=== PATIENT | male | born 1950 | race Caucasian/White ===

== ENCOUNTER 2022-05-08 16:20 | Emergency (ER) | payer OTHER, SELFPAY ==
[2022-05-08 16:20] VITALS: BP 216/104; PULSE 81; RESP 18; TEMP 37.2; O2SAT 97; BMI 28.4
[2022-05-08 16:59] VITALS: BP 192/100; PULSE 73; RESP 20; O2SAT 94
--- NOTE | 2022-05-08 16:59 | ED.RN ---
REILLY CATHETER PLACED BY Radha TAVAREZ RN.
[2022-05-08] MEDS: Lidocaine Jelly 2% 20 ML Syringe (URO-JET) 1 APPLIC TOPICAL (17:00)
[2022-05-08 17:06] LABS: Mucous, Urine 0 SEEN /hpf (<or=2+); Squamous Epithelial Cells - UA 0 SEEN /hpf (0-5)
[2022-05-08 17:13] LABS: Color, Urine Amber (Yellow); Glucose, Dipstick Normal (Normal); Ketone-Dipstick 15 mg/dl (Negative); Leukocyte Esterase-Dipstick 100 /ul (Negative); Nitrite-Dipstick Negative (Negative); Occult Blood-Urine 250 /ul (Negative); Protein-Dipstick 100 mg/dl (Negative); Specific Gravity, Urine 1.015 (1.002-1.030); Urine Bilirubin Dipstick Negative (Negative); Urine Clarity Sl. Cloudy (Clear); Urine Urobilinogen Normal (Normal)
[2022-05-08 17:22] VITALS: BP 183/95; PULSE 72; RESP 16; O2SAT 95
[2022-05-08 17:34] LABS: Red Blood Cells-Urine > 100 SEEN /hpf (0-5)
[2022-05-08 17:35] LABS: Bacteria RARE /hpf (None Seen); White Blood Cells 0-5 SEEN /hpf (0-5)
--- NOTE | 2022-05-08 17:55 | EDS_ITS ---
HPI History of Present Illness Chief Complaint: Complaint Narrative Narrative: 71-year-old male with urinary retention. He states that he was having some trouble urinating yesterday but was able to void. He states that he did have to use the restroom multiple times and could not find a good stream. Today the patient started off being able to urinate and has not been able to urinate for couple of hours he was seen today at his primary care's office he tried to put in a catheter but could not. He does have any flank pain. He denies dysuria. [facility], [facility] Medical History Aneurysm Stroke Home Medications aspirin 81 mg tablet 81 mg PO DAILY 05/08/22 [History Last Taken Unknown] Allergy/AdvReac Type Severity Reaction Status Date / Time No Known Allergies Allergy Verified 05/08/22 16:22 Social History Smoking Status: Never smoker ROS ROS ED Constitutional Constitutional ED: Denies chills or fever(s) Eyes Eyes: Denies change in vision ENT ENT ED: Denies rhinorrhea or sore throat Cardiovascular Cardiovascular: Denies chest pain or palpitations Respiratory/Chest Respiratory/Chest: Denies cough or dyspnea Gastrointestinal Gastrointestinal: Denies abdominal pain, nausea or vomiting Genitourinary Genitourinary ED: Denies dysuria or hematuria Musculoskeletal Musculoskeletal: Denies arthralgias Integumentary Denies abscess Neurologic Neurologic: Denies headache(s) or paresthesias EXAM Physical Exam Const Vital Signs: 05/08/22 16:20 05/08/22 16:59 05/08/22 17:22 Temperature 99 F Temperature Source Temporal Pulse Rate 81 73 72 Respiratory Rate 18 20 H 16 Blood Pressure 216/104 H 192/100 H 183/95 H Blood Pressure Mean 141 130 124 Pulse Ox 97 94 95 Oxygen Delivery Method Room Air Room Air Room Air Positive well nourished General Appearance ED: NAD HEENT Reports moist mucous membranes normocephalic and atraumatic Eyes PERRL and EOMs intact bilaterally Resp normal respiratory effort Cardio regular rate GI non-tender and non-distended Back/Spine no CVA tenderness Neuro oriented x3 and CN's II-XII intact bilaterally Sensorium / Orientation: alert Motor Exam: strength 5/5 throughout Psych mental status grossly normal MDM MDM MDM Narrative Medical decision making narrative: Patient presented with urinary tension. He initially was hypertensive I suspect this is due to urinary retention. Hill catheter was placed without difficulty. There was some blood in his urine and some clots. Urinalysis negative for UTI however. Patient states he is on currently 2 prostate medicines at home. He states his primary care physician wanted him to follow-up with a urologist so I will give him Dr. Galvin. I do not believe he needs blood work. His blood pressure is improving. Impression: 1. Acute urinary retention Lab Data Labs: Laboratory Results - last 24 hr 05/08/22 16:52 Urine Color Mary Urine Clarity Sl. Cloudy Urine pH 6.0 Ur Specific [place] 1.015 Urine Protein 100 H Urine Glucose (UA) Normal Urine Ketones 15 H Urine Occult Blood 250 H Urine Nitrite Negative Urine Bilirubin Negative Urine Urobilinogen Normal Ur Leukocyte Esterase 100 H Urine RBC > 100 SEEN Urine WBC 0-5 SEEN Ur Squamous Epith Cells 0 SEEN Urine Bacteria RARE Urine Mucus 0 SEEN Discharge Plan Triage Chief Complaint: Complaint ED Provider: Carroll Vail Dx/Rx/DC Orders Instructions: ED Urinary Retention, Male Prescriptions: No Action aspirin 81 mg Tablet 81 mg PO DAILY Primary Care Provider: Maco Victor Referrals: Maikol Deal MD [Med Staff - Active Staff] - 5-7 Days Maco Victor MD [Primary Care Provider] - Disposition Disposition: Home, Self Care
[2022-05-08 18:05] VITALS: BP 142/69; PULSE 72; RESP 15; O2SAT 98
== END 2022-05-08 18:05 | disposition home or self-care (01) ==
PROVIDERS: Emergency Provider Student in an Organized Health Care Education/Training Program; PCP Family Medicine; Visit Provider Student in an Organized Health Care Education/Training Program
DX: R33.9 Retention of urine, unspecified (principal); Z79.82 Long term (current) use of aspirin; Z86.73 Personal history of transient ischemic attack (TIA), and cerebral infarction without residual deficits
CPT/HCPCS: 51702; 81001; 87086; 87088; 87186; 99283

== ENCOUNTER → 2024-07-12 | Outpatient (CLI) | payer SELFPAY ==
--- NOTE | 2024-07-12 17:45 | CT_ITS ---
PROCEDURE: SOFT TISSUE NECK WITH CONTRAST 07/12/2024 REASON FOR EXAM: MASS OF LEFT SIDE OF NECK TECHNIQUE: CT of the soft tissues of the neck from the orbits to the upper mediastinum with intravenous contrast. CONTRAST: Isovue-300 50 VOLUME: 100 mL One or more dose reduction techniques were used (e.g., Automated exposure control, adjustment of the mA and/or kV according to patient size, use of iterative reconstruction technique). RADIATION DOSE SUMMARY: CTDlvol: 14.2 mGy DLP: 320 mGycm COMPARISON: None. FINDINGS: Well-defined left supraclavicular benign nonenhancing cyst is noted measuring 9.2 x 6.9 x 9.8 cm in its largest craniocaudal, transverse and anteroposterior dimensions respectively. The cyst is extending to the posterior aspect of the left carotid space, posterior to the left sternocleidomastoid muscle with displacement of the adjacent muscles. Unremarkable right ventriculoperitoneal shunt tube. Hypodensity of the left occipital lobe, probably chronic. Diffuse spondylosis. Moderate carotid artery calcifications. Airway: Unremarkable. Salivary glands: Unremarkable. Lymph nodes: No lymphadenopathy is seen. Thyroid: Unremarkable. Vasculature: No acute abnormality. Orbits: Unremarkable. Paranasal sinuses and mastoids: Unremarkable. Lung apices: Unremarkable. Upper mediastinum: Unremarkable. Bones: No acute abnormality. CT/Soft Tissue Neck WITH Contrast IMPRESSION: Well-defined left supraclavicular benign nonenhancing cyst is noted measuring 9 .2 x 6.9 x 9.8 cm in its largest craniocaudal, transverse and anteroposterior dimensions respectively. The cyst is extending to the posterior aspect of the left carotid space, rn angiography ior to the left sternocleidomastoid muscle with displacement of the adjacent muscles. Unremarkable right ventriculoperitoneal shunt tube. Hypodensity of the left occipital lobe, probably chronic. Diffuse spondylosis. Moderate carotid artery calcifications. Reading Location: [place] [id number]
== END | disposition home or self-care (01) ==
PROVIDERS: PCP Family Medicine; Referring Provider Surgery Plastic and Reconstructive Surgery; Visit Provider Surgery Plastic and Reconstructive Surgery
DX: R22.1 Localized swelling, mass and lump, neck (principal)
CPT/HCPCS: 70491; Q9967

== ENCOUNTER 2024-08-20 13:02 | Observation (INO) | payer SELFPAY, OTHER ==
--- NOTE | 2024-08-07 18:39 | PAT.ANE_ITS ---
Pre-Assessment Diagnosis/Proposed Procedure Planned Operative Procedure(s): L) left neck mass excision Anesthesia History Anesthesia History - plant guard: Anesthesia History - plant guard Hx Hospitalization No 08/07/24 11:25 Any Problems With Anesthesia No 08/07/24 11:25 Cholinesterase deficiency No 08/07/24 11:25 You/Your Family Experience fever (hyperthermia) with Relationship Recent Exposure to Contagious Disease Does patient have nerve No 08/07/24 11:25 stimulator Patient instructed to have device shut off --Does patient have Pacemaker or ICD? When Was Last Pacemaker Check QUESTION #4 FULL TEXT: You/Your Family Experience fever (hyperthermia) with Anesthesia Last Oral Intake Last Oral intake: Last Oral Intake NPO since Meds taken in AM with sips of water? Meds patient instructed to take am of surgery PONV PONV - plant guard: PONV - plant guard Female No 08/07/24 11:25 HX of Motion Sickness No 08/07/24 11:25 HX of N/V After Surgery No 08/07/24 11:25 Non-Smoker Yes 08/07/24 11:25 Duration of Surgery greater Yes 08/07/24 11:25 than 60 minutes Number of Risk Factors 2 08/07/24 11:25 PONV Score Moderate Risk 08/07/24 11:25 Height & Weight Height & Weight: Anesthesia: Height & Weight Height 5 ft 10 in 05/31/24 10:52 Respiratory Assessment Respiratory Assessment - plant guard: Respiratory Tract Infection Hx - plant guard Hx Respiratory Tract Infection No 08/07/24 11:25 STOP Sleep Apnea STOP Sleep Apnea - plant guard: STOP Sleep Apnea - plant guard Hx Hypertension Yes: CONTROLLED ON MED 08/07/24 11:25 Hx Sleep Apnea No 08/07/24 11:25 CPAP BIPAP Do you snore loudly (louder No 08/07/24 11:25 than talking or can be heard Do you often feel tired/ No 08/07/24 11:25 fatigued/ sleepy during daytime? Has anyone observed you stop No 08/07/24 11:25 breathing during sleep? STOP Results Negative 08/07/24 11:25 QUESTION #5 FULL TEXT : Do you snore loudly (louder than talking or can be heard through closed doors)? 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 Specify any problems Hx of Preganancy in last 3 N/A 08/07/24 11:25 Months Nurse Filling Out Transfusion VCHRISTIN 08/07/24 11:25 & Questions: Date: 08/07/24 08/07/24 11:25 Time: 11:26 08/07/24 11:25 Patient unable to answer at this time (ie. confused, unrespo /Reproduction History /Reproductive History - plant guard: /Reproductive Hx- plant guard Hx Now No 08/07/24 11:25 Gestational Age (in weeks): EDC: Hx Hx Para Hx Section SAB No 08/07/24 11:25 [facility], [facility] Medical History (Updated 08/07/24 @ 11:25 by Lauren Obando) Wears dentures Wears glasses Depression Anxiety Autism Injury of head and neck Hypertension Stroke Aneurysm Home Medications ?Medication ?Instructions ?Recorded ?Last Taken ?Type aspirin 81 mg tablet 81 mg PO DAILY 05/08/22 Unkn own History finasteride 5 mg tablet 5 mg PO DAILY 08/07/24 Unkno wn History lisinopril 5 mg tablet 5 mg PO DAILY 08/07/24 Unkno wn History tamsulosin 0.4 mg capsule 0.4 mg PO DAILY 08/07/24 Unk nown History Allergy/AdvReac Type Severity Reaction Status Date / Time No Known Allergies Allergy Verified 08/07/24 11:12 Surgical History (Updated 08/07/24 @ 11:25 by Lauren Obando) History of brain shunt Social History Smoking Status: Never smoker Audit: Pertinent Findings Pertinent Findings EKG Perinent findings: February 06, 2013. Normal sinus rhythm with sinus arrhythmia. Left ventricular hypertrophy. Recommendation Anesthesia Recommendation Anesthesia recommendation: OPTIMIZED for anesthesia (Only EKG is from 2014. Patient has atherosclerotic disease as evidenced by the history of stroke. Please repeat EKG on day of arrival or sooner if possible.)
[2024-08-20] VITALS (17 sets, daily range): BP systolic 150–202; BP diastolic 76–106; PULSE 57–88; RESP 15–20; TEMP 36.1–36.6; O2SAT 91–98; BMI 26.9
[2024-08-20] MEDS: Lactated Ringers 1,000 ML 15 ML IV (10:28)
--- NOTE | 2024-08-20 10:28 | PCM.HP.STD ---
HPI - General HPI Narrative MICHELLE BATES, is a 74 M who presents with a left neck mass. Current Encounter (DATE OF SURGERY H&P UPDATE): I saw and examined the patient this morning in pre-operative holding. We discussed risks and benefits of today's surgery and they would like to proceed. NO CHANGE in health history since last seen and evaluated. Ready to proceed with surgery. Discussed blood pressure with anesthesia and vascular surgery. Since diastolic <110, they're in agreement with proceeding. Patient getting Versed now. He did not take morning blood pressure medicine by accident. [facility] Medical History Wears dentures Wears glasses Depression Anxiety Autism Injury of head and neck Hypertension Stroke Aneurysm Home Medications ?Medication ?Instructions ?Recorded ?Last Taken ?Type aspirin 81 mg tablet 81 mg PO DAILY 05/08/22 08/13/24 History finasteride 5 mg tablet 5 mg PO DAILY 08/07/24 Unknown History tamsulosin 0.4 mg capsule 0.4 mg PO DAILY 08/07/24 Unknown History lisinopril 30 mg tablet 30 mg PO DAILY 08/20/24 Unknown History Allergy/AdvReac Type Severity Reaction Status Date / Time No Known Allergies Allergy Verified 08/07/24 11:12 Surgical History History of brain shunt Social History Smoking Status: Never smoker Vital Signs Vital Signs Vital Signs: 08/20/24 10:02 08/20/24 10:02 Temperature 97.3 F L Temperature Source Temporal Pulse Rate 60 Respiratory Rate 16 Respiratory Pattern Normal Blood Pressure 202/106 H Blood Pressure Mean 138 Blood Pressure Source Manual Blood Pressure Position Semi-Fowlers Blood Pressure Location Left Arm Pulse Ox 97 Oxygen Delivery Method Room Air Weight Weight: 187 lb 6.287 oz Body Mass Index (BMI) 26.9 Physical Exam Narrative Large 15 x 15 cm mobile superficial mass in the left neck/upper chest. No draining sinuses. No palpable lymphadenopathy in the cervical region. Patient able to shrug shoulders and turn head. Assessment & Plan Assessment/Plan (1) Mass of left side of neck: PLAN: I talked to the patient extensively about the risks of surgery, including bleeding, infection, damage to surrounding structures, poor scaring, surgical site dehiscence and wound formation, need for wound care, need for repeat operations, failure to obtain the desired result, DVT/PE, and the risks of anesthesia including , including stroke (from low OR HIGH blood pressure/ischemia or clot). The benefits and alternatives of this surgery were also discussed. All of their questions were answered, and they agreed to proceed with surgery. INTERVAL H&P PLAN, DATE OF SURGERY: We will proceed with surgery today. I marked the mass
--- NOTE | 2024-08-20 10:42 | PCM.PRE.AN2 ---
ASA Classification* ASA Classification ASA Classification: 3 Assessment & Plan Anesthesia* Anesthesia Assessment Anesthesia Assessment: Discussed sedation and/or anesthesia options, risks, benefits, and alternatives with patient/parents/legal guardian/POA. Questions invited. The patient/parents/legal guardian/POA seems to understand and agrees to proceed with anesthesia plan. Reviewed the physical assessment, medical history, allergy history and patient home medications list prior to surgery/procedure/anesthetic and documented any changes. Performed airway and anesthesia risk assessments. Anesthesia Type Anesthesia Type: General (Consider [place] scope intubation.) History Source History Obtained from:: Patient and Chart Anesthesia Focused Assessment* Temperature: 97.3 F Pulse Rate: 57 Blood Pressure: 194/94 Respiratory Rate: 16 Pulse Ox: 97 Oxygen Delivery Method: Room Air Airway Assessment Mouth opens: >3 cm Mallampati Score: IV Teeth Condition: Dentures (Patient has full upper and lower dentures. These will come out.) Neck Range of motion (ROM): Limited ROM (Severe Restriction) Comment: 4. Labs Anesthesia Preop lab: CBC WBC 10.0 K/mm3 (4.4-11.0) 02/06/13 11:40 02/06/13 RBC 4.98 M/mm3 (4.6-6.2) 02/06/13 11:40 02/06/13 Hgb 15.0 g/dl (13.0-16.5) 02/06/13 11:40 02/06/13 Hct 43.8 % (40-54) 02/06/13 11:40 02/06/13 Plt Count 218 K/mm3 (150-450) 02/06/13 11:40 02/06/13 CHEMISTRY Potassium 3.6 mmol/L (3.5-5.1) 02/06/13 11:40 02/06/13 Sodium 136 mmol/L (136-145) 02/06/13 11:40 02/06/13 BUN 12 mg/dL (7-18) 02/06/13 11:40 02/06/13 Creatinine 0.9 mg/dL (0.8-1.3) 02/06/13 11:40 02/06/13 Glucose 188 mg/dL (70-110) H 02/06/13 11:40 02/06/13 POC Glucose 189 mg/dL (70-110) H 02/06/13 11:35 02/06/13 COAG PT 13.0 SECONDS (11.9-14.4) 02/06/13 11:40 02/06/13 Pre-Assessment Diagnosis/Proposed Procedure Planned Operative Procedure(s): L) left neck mass excision Anesthesia History Anesthesia History - greenhouse transplanter: Anesthesia History - greenhouse transplanter Hx Hospitalization No 08/07/24 11:25 Any Problems With Anesthesia No 08/07/24 11:25 Cholinesterase deficiency No 08/07/24 11:25 You/Your Family Experience fever (hyperthermia) with Relationship Recent Exposure to Contagious No 08/20/24 10:02 Disease Does patient have nerve No 08/07/24 11:25 stimulator Patient instructed to have device shut off --Does patient have Pacemaker No 08/20/24 10:02 or ICD? When Was Last Pacemaker Check QUESTION #4 FULL TEXT: You/Your Family Experience fever (hyperthermia) with Anesthesia Last Oral Intake Last Oral intake: Last Oral Intake NPO since 20:00 08/20/24 10:02 Meds taken in AM with sips of No 08/20/24 10:02 water? Meds patient instructed to take am of surgery Any additional information?: Yes Meds taken in AM with sips of water?: No PONV PONV - greenhouse transplanter: PONV - greenhouse transplanter Female No 08/07/24 11:25 HX of Motion Sickness No 08/07/24 11:25 HX of N/V After Surgery No 08/07/24 11:25 Non-Smoker Yes 08/07/24 11:25 Duration of Surgery greater Yes 08/07/24 11:25 than 60 minutes Number of Risk Factors 2 08/07/24 11:25 PONV Score Moderate Risk 08/07/24 11:25 Height & Weight Height & Weight: Anesthesia: Height & Weight Height 5 ft 10 in 08/20/24 10:02 Weight: 85 kg 08/20/24 10:02 Body Mass Index (BMI) 26.9 08/20/24 10:02 Respiratory Assessment Respiratory Assessment - greenhouse transplanter: Respiratory Tract Infection Hx - greenhouse transplanter Hx Respiratory Tract Infection No 08/07/24 11:25 STOP Sleep Apnea STOP Sleep Apnea - greenhouse transplanter: STOP Sleep Apnea - greenhouse transplanter Hx Hypertension Yes: CONTROLLED ON MED 08/07/24 11:25 Hx Sleep Apnea No 08/07/24 11:25 CPAP BIPAP Do you snore loudly (louder No 08/07/24 11:25 than talking or can be heard Do you often feel tired/ No 08/07/24 11:25 fatigued/ sleepy during daytime? Has anyone observed you stop No 08/07/24 11:25 breathing during sleep? STOP Results Negative 08/07/24 11:25 QUESTION #5 FULL TEXT : Do you snore loudly (louder than talking or can be heard through closed doors)? Tobacco Use History Tobacco Use History - greenhouse transplanter: Tobacco Use History - greenhouse transplanter Tobacco Use Smoking Status Never smoker 08/07/24 11:25 Hx Tobacco Use No 08/07/24 11:25 Years Smoking Packs Smoked per Day Smoking Cessation Date was within the last 15 years Hx Smoking Cessation Date Hx Smoking Cessation Counseling Hematologic Medial History Hematologic Hx - greenhouse transplanter: Hematologic Medical Hx - fiberglass roller Hx of Blood Transfusion No 08/07/24 11:25 Hx of Transfusion in last 3 No 08/07/24 11:25 Months Date of Last Transfusion (if within last 3 months) Ever experience any problems No 08/07/24 11:25 with transfusion(s)? Specify any problems Hx of Preganancy in last 3 N/A 08/07/24 11:25 Months Nurse Filling Out Transfusion VCHRISTIN 08/07/24 11:25 & Questions: Date: 08/07/24 08/07/24 11:25 Time: 11:26 08/07/24 11:25 Patient unable to answer at this time (ie. confused, unrespo /Reproduction History /Reproductive History - greenhouse transplanter: /Reproductive Hx- greenhouse transplanter Hx Now No 08/07/24 11:25 Gestational Age (in weeks): EDC: Hx Hx Para Hx Section SAB No 08/07/24 11:25 Active Medications Active Medications: Current Medications Generic Name Dose Route Start Last Admin Trade Name Freq PRN Reason Stop Dose Admin Lactated Ringer's 1,000 mls @ 15 mls/hr 08/20/24 09:15 08/20/24 10:28 IV 15 mls/hr .Q48H EDWINA Administration PFSH Medical History Wears dentures Wears glasses Depression Anxiety Autism Injury of head and neck Hypertension Stroke Aneurysm Home Medications ?Medication ?Instructions ?Recorded ?Last Taken ?Type aspirin 81 mg tablet 81 mg PO DAILY 05/08/22 08/13/24 History finasteride 5 mg tablet 5 mg PO DAILY 08/07/24 Unknown History tamsulosin 0.4 mg capsule 0.4 mg PO DAILY 08/07/24 Unknown History lisinopril 30 mg tablet 30 mg PO DAILY 08/20/24 Unknown History Allergy/AdvReac Type Severity Reaction Status Date / Time No Known Allergies Allergy Verified 08/07/24 11:12 Surgical History History of brain shunt Social History Smoking Status: Never smoker Review of Systems (Anesthesia) ROS Narrative System reviewed and no additional complaints, except as documented.
--- NOTE | 2024-08-20 10:45 | CYST_PTH ---
PATIENT: MICHELLE BATES LOC: MS3 U#:[id number] AGE/SX: 74/M ROOM: [facility] [place] RE08/20/[address]: Dr. Christophe Curtis MD : 1950 BED: 1 DIS: 08/22/2024 SPEC #: [id number] RECD: 08/20/24 12:46 STATUS: KUN JERRY #: [id number] KEELEY: 08/20/24 10:[address]: Christophe Curtis DEPT: SURGICAL PATHOLOGY RECD BY: Asim Jurado ENTERED: 08/20/24 14:54 SP TYPE: Cyst OTHR DR: SUKUMAR BENJAMIN, [facility] Tissues: A - CYST Procedures: Surgery Specimen Level III HEADER OPERATION: Left neck mass excision PRE-OP DIAGNOSIS: Mass of left side of neck TISSUE SUBMITTED: A- Left neck cyst MICROSCOPIC DIAGNOSIS A. 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 GROSS DESCRIPTION A. Received in formalin labeled with the patient's name and date of . Designated as left neck cyst is a bruce-pink trabeculated and focally fibrotic but predominantly thin and translucent cyst wall devoid of orientation or cyst contents, 10.0 x 5.4 x <0.1-0.3 cm. There are patchy areas of attached adipose tissue. There are few possible excrescences, all measuring 0.1 cm or less. Time Buyer sections are submitted in 2 cassettes, to include the possible excrescences in cassette A1. [place] 08/20/2024 CPT:51549
--- NOTE | 2024-08-20 10:45 | FLU_PTH ---
PATIENT: MICHELLE BATES LOC: MS3 U#:[id number] AGE/SX: 74/M ROOM: [facility] RE08/20/[address]: Dr. Christophe Curtis MD : 1950 BED: 1 DIS: 08/22/2024 SPEC #: [id number] RECD: 08/20/24 12:46 STATUS: KUN RECeleste #: [id number] KEELEY: 08/20/24 10:[address]: Christophe Curtis DEPT: CYTOLOGY RECD BY: Theresa Alegria ENTERED: 08/20/24 13:43 SP TYPE: Fluid OTHR DR: SUKUMAR BENJAMIN, KOLE Tissues: A - Neck, NOS Procedures: Special Stain Group II Surgery Specimen Level IV Cytospin Fluid HEADER OPERATION: Left neck mass excision PRE-OP DIAGNOSIS: Mass of left side of neck TISSUE SUBMITTED: A- Left neck cyst fluid for cytology DIAGNOSIS CYTOLOGY A. Left neck cyst fluid: * No malignant cells are identified CYTOLOGY STUDY Slides are reviewed. CYTOLOGY GROSS A. Received is 5 ml of [id number] fluid labeled with the patient's name and and designated per the requisition as Left neck mass fluid. Submitted for cytology and cell block preparation. Mr 08/20/2024 CPT: 75108
--- OUTSIDE RECORDS SUMMARY | 2024-08-20 10:54 | XMS RPT_ITS | CCD ---
Author Organization [facility] Care Team Providers Care Cinder Man Name Role Phone SOURAV LEBLANC, SUKUMAR Primary Care Physician SOURAV LEBLANC, SUKUMAR Attending Marlee LEBLANC, SUKUMAR Primary Care EVA Kamara Attending Unavailable SOURAV LEBLANC, SUKUMAR Attending Marlee LEBLANC, SUKUMAR Primary Care Marlee Victor MD, Dr. Dewey Primary Care Provider Dr. Maco Victor MD Referring Provider Dr. Christophe Curtis MD Attending Provider [phone] Dr. Christophe Curtis MD Referring Provider [phone] Christophe Curtis Attending Unavailable Maco Victor Primary Care Unavailable Maco Victor Referring Unavailable Christophe Curtis Attending Unavailable Christophe Curtis Referring Unavailable Maco Victor Primary Care Unavailable Christophe Curtis Referring Unavailable Maco Victor Primary Care Unavailable Christophe Curtis Admitting Unavailable Christophe Curtis Attending Unavailable Medications Current Medications Medication Drug Class(es) Dates Sig (Normalized) Sig (Original) aspirin 81 mg oral tablet (4 sources) Platelet Aggregation Inhibitor, Nonsteroidal Anti-inflammatory Drug Start: 03-05-2019 take 1 tablet by mouth once daily Aspirin 81 mg Tablet Active 81 mg PO DAILY May 08, 2022 12:00am finasteride 5 mg oral tablet (2 sources) 5-alpha Reductase Inhibitor Start: 12-29-2023 End: 06-26-2024 finasteride 5 mg oral tablet Dose : 5 mg = 1 tab(s), Oral, qDay, # 90 tab(s), 1 Refill(s), Pharmacy: [facility], 175, cm, 12/22/23 14:32:00 EST, Height, kg, 12/22/23 14:32:00 EST, Dosing Weight Start Date: 12/29/23 Stop Date: 06/26/24 Status: Ordered Start: 04-21-2023 End: 05-21-2023 finasteride 5 mg oral tablet Dose : 5 mg = 1 tab(s), Oral, qDay, # 30 tab(s), 0 Refill(s), Pharmacy: [facility], 175.5, cm, 04/21/23 10:52:00 EDT, Height, kg, 04/21/23 10:52:00 EDT, Dosing Weight Start Date: 04/21/23 Stop Date: 05/21/23 Status: Ordered lisinopril 20 mg oral tablet (2 sources) Angiotensin Converting Enzyme Inhibitor Start: 12-29-2023 End: 06-26-2024 lisinopril 20 mg oral tablet Dose : 20 mg = 1 tab(s), Oral, Daily, # 90 tab(s), 1 Refill(s), Pharmacy: [facility], Hypertension, 175, cm, 12/22/23 14:32:00 EST, Height, kg, 12/22/23 14:32:00 EST, Dosing Weight Start Date: 12/29/23 Stop Date: 06/26/24 Status: Ordered Start: 04-21-2023 End: 05-21-2023 lisinopril 20 mg oral tablet Dose : 20 mg = 1 tab(s), Oral, Daily, # 30 tab(s), 0 Refill(s), Pharmacy: [facility], Hypertension, 175.5, cm, 04/21/23 10:52:00 EDT, Height, kg, 04/21/23 10:52:00 EDT, Dosing Weight Start Date: 04/21/23 Stop Date: 05/21/23 Status: Ordered tamsulosin hydrochloride 0.4 mg oral capsule (2 sources) alpha-Adrenergic Shruti Start: 12-29-2023 End: 06-26-2024 tamsulosin 0.4 mg oral capsule Dose : 0.4 mg = 1 cap(s), Oral, qDay, # 90 cap(s), 1 Refill(s), Pharmacy: [facility], 175, cm, 12/22/23 14:32:00 EST, Height, kg, 12/22/23 14:32:00 EST, Dosing Weight Start Date: 12/29/23 Stop Date: 06/26/24 Status: Ordered Start: 04-21-2023 End: 05-21-2023 tamsulosin 0.4 mg oral capsu le Dose : 0.4 mg = 1 cap(s), Oral, qDay, # 30 cap(s), 0 Refill(s), Pharmacy: [facility], 175.5, cm, 04/21/23 10:52:00 EDT, Height, kg, 04/21/23 10:52:00 EDT, Dosing Weight Start Date: 04/21/23 Stop Date: 05/21/23 Status: Ordered Problems Problem Classification Problem Date Documented Date Episodic/Chronic Disorders of lipid metabolism (3 sources) Hyperlipidemia; Translations: [Hyperlipidemia, unspecified] Onset: 12-28-2023 05-24-2023 Chronic Essential hypertension (4 sources) Benign essential hypertension; Translations: [Essential (primary) hypertension] Onset: 12-28-2023 03-05-2019 Chronic Hyperplasia of prostate (4 sources) Benign prostatic hyperplasia; Translations: [Benign prostatic hypertrophy with outflow obstruction] 04-21-2023 Chronic Other circulatory disease (1 source) History of cerebrovascular accident with residual deficit 12-22-2023 Episodic Other screening for suspected conditions (not mental disorders or infectious disease) (2 sources) Raised prostate specific antigen 03-05-2019 Episodic Other skin disorders (4 sources) Mass of neck; Translations: [Localized swelling, mass and lump, neck] 06-29-2020 Episodic Other skin disorders (1 source) Localized swelling, mass and lump, neck; Translations: [Localized swelling, mass and lump, neck] Onset: 07-16-2024 Episodic Shock (2 sources) Hemorrhagic shock 03-05-2019 Episodic Unclassified (2 sources) Patient encounter status 04-21-2023 Urinary tract infections (2 sources) Urinary tract infectious disease 05-11-2022 Episodic Results Test Name Value Interpretation Reference Range Facility MR/[place] 08-07-2024 MR/[facility] Medical Records Department [address] [place] [address] PAT - Anesthesia 08/07/24 1833 MR#: [id number] Acct: [id number] Name: MICHELLE RODRGIUEZ Rep #: [id number] : 1950 74 From: Medardo Cortez MD PCP: Dr. Maco Victor MD Status:PRE [facility] [place] Y Race: C Location: [facility] [place] Pre-Assessment Diagnosis/Proposed Procedure Planned Operative Procedure(s): L) left neck mass excision Anesthesia History Anesthesia History - senior national account manager: Anesthesia History - senior national account manager Hx Hospitalization No 08/07/24 11:25 Any Problems With Anesthesia No 08/07/24 11:25 Cholinesterase deficiency No 08/07/24 11:25 You/Your Family Experience fever (hyperthermia) with Relationship Recent Exposure to Contagious Disease Does patient have nerve No 08/07/24 11:25 stimulator Patient instructed to have device shut off --Does patient have Pacemaker or ICD? When Was Last Pacemaker Check QUESTION #4 FULL TEXT: You/Your Family Experience fever (hyperthermia) with Anesthesia Last Oral Intake Last Oral intake: Last Oral Intake NPO since Meds taken in AM with sips of water? Meds patient instructed to take am of surgery PONV PONV - senior national account manager: PONV - senior national account manager Female No 08/07/24 11:25 HX of Motion Sickness No 08/07/24 11:25 HX of N/V After Surgery No 08/07/24 11:25 Non-Smoker Yes 08/07/24 11:25 Duration of Surgery greater Yes 08/07/24 11:25 than 60 minutes Number of Risk Factors 2 08/07/24 11:25 PONV Score Moderate Risk 08/07/24 11:25 Height Weight Height Weight: Anesthesia: Height Weight Height 5 ft 10 in 05/31/24 10:52 Respiratory Assessment Respiratory Assessment - senior national account manager: Respiratory Tract Infection Hx - senior national account manager Hx Respiratory Tract Infection No 08/07/24 11:25 STOP Sleep Apnea STOP Sleep Apnea - senior national account manager: STOP Sleep Apnea - senior national account manager Hx Hypertension Yes: CONTROLLED ON MED 08/07/24 11:25 Hx Sleep Apnea No 08/07/24 11:25 CPAP BIPAP Do you snore loudly (louder No 08/07/24 11:25 than talking or can be heard Do you often feel tired/ No 08/07/24 11:25 fatigued/ sleepy during daytime? Has anyone observed you stop No 08/07/24 11:25 breathing during sleep? STOP Results Negative 08/07/24 11:25 QUESTION #5 FULL TEXT : Do you snore loudly (louder than talking or can be heard through closed doors)? 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 Specify any problems Hx of Preganancy in last 3 N/A 08/07/24 11:25 Months Nurse Filling Out Transfusion VCHRISTIN 08/07/24 11:25 Questions: Date: 08/07/24 08/07/24 11:25 Time: 11:26 08/07/24 11:25 Patient unable to answer at this time (ie. confused, unrespo /Reproduction History /Reproductive History - senior national account manager: /Reproductive Hx- senior national account manager Hx Now No 08/07/24 11:25 Gestational Age (in weeks): EDC: Hx Hx Para Hx Section SAB No 08/07/24 11:25 [facility] Medical History (Updated 08/07/24 @ 11:25 by Lauren Obando) Wears dentures Wears glasses Depression Anxiety Autism Injury of head and neck Hypertension Stroke Aneurysm Home Medications ???Medication ???Instructions ???Recorded ???Last Taken ???Type aspirin 81 mg tablet 81 mg PO DAILY 05/08/22 Unknown Hi story finasteride 5 mg tablet 5 mg PO DAILY 08/07/24 Unknown His tory lisinopril 5 mg tablet 5 mg PO DAILY 08/07/24 Unknown His tory tamsulosin 0.4 mg capsule 0.4 mg PO DAILY 08/07/24 Unknown H istory Allergy/AdvReac Type Severity Reaction Status Date / Time No Known Allergies Allergy Verified 08/07/24 11:12 Surgical History (Updated 08/07/24 @ 11:25 by Lauren Obando) History of brain shunt Social History Smoking Status: Never smoker Audit: Pertinent Findings Pertinent Findings EKG Perinent findings: February 06, 2013. Normal sinus rhythm wit (more content not included)... Normal [facility] Soft Tissue Neck WITH Contra ston 07-12-2024 Soft Tissue Neck WITH Contrast [facility] Imaging Services [address] [place] [address] Soft Tissue Neck WITH Contrast MR#: [id number] Acct: [id number] Name: MICHELLE RODRIGUEZ Rep #: [id number] : 1950 M 74 From: Brennen gregorio MD PCP: Dr. Maco Victor MD Status: REG CLI Study: Soft Tissue Neck WITH Contrast Date of Exam: 0 07/12/24 Exam# [id number] Ordering Dr: Christophe Curtis MD PROCEDURE: SOFT TISSUE NECK WITH CONTRAST 07/12/2024 REASON FOR EXAM: MASS OF LEFT SIDE OF NECK TECHNIQUE: CT of the soft tissues of the neck from the orbits to the upper mediastinum with intravenous contrast. CONTRAST: Isovue-300 50 VOLUME: 100 mL One or more dose reduction techniques were used (e.g., Automated exposure control, adjustment of the mA and/or kV according to patient size, use of iterative reconstruction technique). RADIATION DOSE SUMMARY: CTDlvol: 14.2 mGy DLP: 320 mGycm COMPARISON: None. FINDINGS: Well-defined left supraclavicular benign nonenhancing cyst is noted measuring 9.2 x 6.9 x 9.8 cm in its largest craniocaudal, transverse and anteroposterior dimensions respectively. The cyst is extending to the posterior aspect of the left carotid space, posterior to the left sternocleidomastoid muscle with displacement of the adjacent muscles. Unremarkable right ventriculoperitoneal shunt tube. Hypodensity of the left occipital lobe, probably chronic. Diffuse spondylosis. Moderate carotid artery calcifications. Airway: Unremarkable. Salivary glands: Unremarkable. Lymph nodes: No lymphadenopathy is seen. Thyroid: Unremarkable. Vasculature: No acute abnormality. Orbits: Unremarkable. Paranasal sinuses and mastoids: Unremarkable. Lung apices: Unremarkable. Upper mediastinum: Unremarkable. Bones: No acute abnormality. CT/Soft Tissue Neck WITH Contrast IMPRESSION: Well-defined left supraclavicular benign nonenhancing cyst is noted measuring 9.2 x 6.9 x 9.8 cm in its largest craniocaudal, transverse and anteroposterior dimensions respectively. The cyst is extending to the posterior aspect of the left carotid space, posterior to the left sternocleidomastoid muscle with displacement of the adjacent muscles. Unremarkable right ventriculoperitoneal shunt tube. Hypodensity of the left occipital lobe, probably chronic. Diffuse spondylosis. Moderate carotid artery calcifications. Reading Location: [place] [address] CC: Dr. Christophe Curtis MD; Dr. Maco Victor MD Ladle Puller: Signed Normal [facility] Plastic Surgery Visit Report on 05-31-2024 Plastic Surgery Visit Report [facility] Plastic Reconstructive Surgery [address], [address] [place] [address] OFFICE VISIT Date of Service: 05/31/24 MR#: [id number] Acct: [id number] Name: MICHELLE RODRIGUEZ Rep #: [id number] : 1950 Provider: Dr. Christophe Curtis MD Age/Sex: 73/M Location: [facility] Status: Signed with Addenda ADDENDUM by Dr. Christophe Curtis MD on 07/05/24 at 1203 Assessment and Plan (No Qualifiers) Assessment and Plan (1) Mass of left side of neck: Status: Acute Plan CPT codes for insurance prior authorization are as follows: [id number], [id number], [id number] 07/05/24 1203 Date Christophe Curtis MD cc: * Signed ADDENDUM by Dr. Christophe Curtis MD on 07/05/24 at 1200 Assessment and Plan (No Qualifiers) Assessment and Plan (1) Mass of left side of neck: Status: Acute Plan: Could not do MRI Getting CT with contrast instead 07/05/24 1200 Date Christophe Curtis MD cc: * Signed Intake Vital Signs 3 05/08/22 16:20 05/31/24 10:52 Height 5 ft 10 in 5 ft 10 in Weight: 192 lb BMI 27.5 BP 190/96 H Blood Pressure Location Lt brachial Position Sitting Respiration 18 Pulse 65 Pulse Source Monitor Pulse Oximetry (%) 96 Oxygen Delivery Method room air Intake Visit Reasons: CYST L SIDE NECK Is patient in pain?: No Allergies No Known Allergies Allergy (Verified 05/31/24 10:52) Medications 3 ???Medication ???Instructions ???Recorded ???Confirmed ???Type aspirin 81 mg tablet 81 mg PO DAILY 05/08/22 05/31/24 H istory Have you fallen in the past year?: No PFSH Medical History Stroke Aneurysm Social History Smoking Status: Never smoker HPI CYST L SIDE NECK Details: Michelle Rodriguez is a 73-year-old male who presents with a left neck mass of approximately 2 years duration. Reports that it has been getting larger but sometimes fluctuates in size. It is not causing him any pain but is getting in the way with movements of his neck and with wearing clothing. He reportedly underwent a CT scan about a year ago at an outside hospital (no imaging available to review) which demonstrated that the mass was superficial. He has not had any numbness or tingling or motor problems in the left upper extremity. No unintentional weight loss or constitutional symptoms. He is not a smoker. No personal or family history of bleeding or clotting problems. ROS General General: Yes good health; No fatigue, fever(s) or weight loss HENMT HENMT: No rhinitis, sore throat/mouth sore, nasal congestion, contacts or glaucoma Endo Endocrine: No thyroid disease, polydipsia, heat intolerance, cold intolerance, hepatitis or excessive urine Skin Skin: No Bleeding, bruising, changing moles or suspicious lesion Musc Musculoskeletal: No joint pain, joint stiffness, muscle weakness, back pain, osteoarthritis or Muscle aches/ myalgia Neuro Neurological: No headache(s), No lightheadedness and No numbness Cardio Cardiovascular: No chest pain, pacemaker, fatigue or shortness of breat with exertion Psych Psychiatric: No depression, claustrophobia or anxiety Resp Respiratory: No spitting up, shortness of breath, sleep apnea, asthma, emphysema, TB, Cough or Smoker Gastro Gastrointestinal: No diarrhea, constipation, blood in stool, nausea, vomiting or abdominal bloating Thom Hematologic: No anemia, No bleeding and No abnormal bleeding Genitourinary: No urinary frequency, blood in urine or incontinence Exam Details Large 15 x 15 cm mobile superficial mass in the left neck/upper chest. No draining sinuses. No palpable lymphadenopathy in the cervical region. Patient able to shrug shoulders and turn head. Coding Level of Care Code Off vis,new,level 3 Diagnoses Mass of left side of neck R22.1 Assessment and Plan (No Qualifiers) Assessment and Plan (1) Mass of left side of neck: Status: Acute Plan: I talked to the patient extensively about the risks of surgery, including bleeding, infection, damage to surrounding structures (especially nerves), need for drain placement, poor scaring, surgical site dehiscence and wound formation, contour irregularities with need for revision of the skin, need for wound care, need for repeat operations, failure to obtain the desired result, DVT/PE, and the risks of anesthesia including , including stroke (from low blood pressure/ischemia or clot). The benefits and alternatives of this surgery were also discussed. I talked to him about getting an MRI given that the mass sometimes fluctuates in size and is overall growing and is in the neck area. The (more content not included)... Normal [facility] .GFRon 12-28-2023 GFR Non- 73 ml/min/1.73sqm Normal [facility] Comment on above: Result Comment: GFR Population mean for , Non- Americans Ages 20-29 = 116 mL/min/1.73 sq.m. Ages 30-39 = 107 mL/min/1.73 sq.m. Ages 40-49 = 99 mL/min/1.73 sq.m. Ages 50-59 = 93 mL/min/1.73 sq.m. Ages 60-69 = 85 mL/min/1.73 sq.m. Ages 70+ = 75 mL/min/1.73 sq.m. Chronic Kidney Disease: Less than 60 mL/min/1.73 square meters End Stage Renal Disease: Less than 15 mL/min/1.73 square meters Performed By: #### L IPID, GFR, CMP #### [address] [address] GFR 89 ml/min/1.73sqm Normal [facility] [place] Comment on above: Result Comment: GFR Population mean for , Non- Americans Ages 20-29 = 116 mL/min/1.73 sq.m. Ages 30-39 = 107 mL/min/1.73 sq.m. Ages 40-49 = 99 mL/min/1.73 sq.m. Ages 50-59 = 93 mL/min/1.73 sq.m. Ages 60-69 = 85 mL/min/1.73 sq.m. Ages 70+ = 75 mL/min/1.73 sq.m. Chronic Kidney Disease: Less than 60 mL/min/1.73 square meters End Stage Renal Disease: Less than 15 mL/min/1.73 square meters Performed By: #### L IPID, GFR, CMP #### [address] [address] CMPon 12-28-2023 Albumin Level 3.8 G/dL Normal 3.4-4.8 [facility] [place] Comment on above: Performed By: #### L IPID, GFR, CMP #### [address] [address] Albumin/Globulin [Mass ratio] 1.3 {ratio} Normal 1.1-2.5 [facility] [place] Comment on above: Performed By: #### L IPID, GFR, CMP #### [address] [address] ALP [Catalytic activity/Vol] 67 U/L Normal 40-135 [facility] [place] Comment on above: Performed By: #### L IPID, GFR, CMP #### [address] [address] ALT [Catalytic activity/Vol] 22 U/L Normal 16-63 [facility] [place] Comment on above: Performed By: #### L IPID, GFR, CMP #### [address] [address] AST [Catalytic activity/Vol] 20 U/L Normal 10-40 [facility] [place] Comment on above: Performed By: #### L IPID, GFR, CMP #### [address] [address] Bili Total 1.2 mg/dL High 0.2-1.0 [facility] [place] Comment on above: Result Comment: Use of this assay is not recommended for patients undergoing treatment with eltrombopag due to the potential for falsely elevated results. Performed By: #### L IPID, GFR, CMP #### [address] [address] BUN/Creatinine Ratio 17 ratio Normal 7-27 [facility] Comment on above: Performed By: #### L IPID, GFR, CMP #### [address] [address] Calcium [Mass/Vol] 9.1 mg/dL Normal 8.4-10.2 [facility] Comment on above: Performed By: #### L IPID, GFR, CMP #### [address] [address] Chloride [Moles/Vol] 105 mmol/L Normal 98-107 [facility] Comment on above: Performed By: #### L IPID, GFR, CMP #### [address] [address] CO2 [Moles/Vol] 27 mmol/L Normal 23-31 [facility] [place] Comment on above: Performed By: #### L IPID, GFR, CMP #### [address] [address] Creatinine [Mass/Vol] 1.00 mg/dL Normal 0.70-1.30 [facility] Comment on above: Result Comment: Test ing performed on Siemens Dimension EXL analyzer using a modified kinetic Jada technique. Performed By: #### L IPID, GFR, CMP #### [address] [address] Electrolyte Balance 8.0 mEq/L Normal 4.0-15.0 [facility] Comment on above: Performed By: #### L IPID, GFR, CMP #### [address] [address] Globulin 3.0 G/dL Normal [facility] [place] Comment on above: Performed By: #### L IPID, GFR, CMP #### [address] [address] Glucose [Mass/Vol] 98 mg/dL Normal 83-110 [facility] Comment on above: Performed By: #### L IPID, GFR, CMP #### [address] [address] Potassium [Moles/Vol] 4.2 mmol/L Normal 3.5-5.1 [facility] Comment on above: Performed By: #### L IPID, GFR, CMP #### [address] [address] Sodium [Moles/Vol] 140 mmol/L Normal 136-145 [facility] Comment on above: Performed By: #### L IPID, GFR, CMP #### [address] [address] Total Protein 6.8 G/dL Normal 6.4-8.2 [facility] [place] Comment on above: Performed By: #### L IPID, GFR, CMP #### [address] [address] Urea nitrogen [Mass/Vol] 17 mg/dL Normal 7-18 [facility] Comment on above: Performed By: #### L IPID, GFR, CMP #### [address] [address] LABORATORYOrdered By: SYSTEM SYSTEM on 12-28-2023 Albumin BCP dye [Mass/Vol] 3.8 G/dL Normal 3.4 - 4.8 G/dL AO ADM SS Albumin/Globulin [Mass ratio] 1.3 {ratio} Normal 1.1 - 2.5 ratio AO ADM SS ALP [Catalytic activity/Vol] 67 U/L Normal 40 - 135 U/L AO ADM SS ALT With P-5'-P [Catalytic activity/Vol] 22 U/L Normal 16 - 63 U/L AO ADM SS AST With P-5'-P [Catalytic activity/Vol] 20 U/L Normal 10 - 40 U/L AO ADM SS Bilirubin [Mass/Vol] 1.2 mg/dL High 0.2 - 1 .0 mg/dL AO ADM SS Comment on above: Interpretive Data: U se of this assay is not recommended for patients undergoing treatment with eltrombopag due to the potential for falsely elevated results. Calcium [Mass/Vol] 9.1 mg/dL Normal 8.4 - 10. 2 mg/dL AO ADM SS Chloride [Moles/Vol] 105 mmol/L Normal 98 - 10 7 mmol/L AO ADM SS CO2 [Moles/Vol] 27 mmol/L Normal 23 - 31 mmol/L AO ADM SS Creatinine [Mass/Vol] 1.00 mg/dL Normal 0.70 - 1.30 mg/dL AO ADM SS Comment on above: Interpretive Data: T esting performed on Siemens Dimension EXL analyzer using a modified kinetic Jada technique. Electrolyte Balance 8.0 mEq/L Normal 4.0 - 15 .0 mEq/L AO ADM SS GFR/1.73 sq M.predicted among blacks MDRD (S/P/Bld) [Vol rate/Area] 89 ml/min/1.73sqm Invalid Interpretation Code AO Chemistry S Comment on above: Interpretive Data: GFR Population mean for , Non- Americans Ages 20-29 = 116 mL/min/1.73 sq.m. Ages 30-39 = 107 mL/min/1.73 sq.m. Ages 40-49 = 99 mL/min/1.73 sq.m. Ages 50-59 = 93 mL/min/1.73 sq.m. Ages 60-69 = 85 mL/min/1.73 sq.m. Ages 70+ = 75 mL/min/1.73 sq.m. Chronic Kidney Disease: Less than 60 mL/min/1.73 square meters End Stage Renal Disease: Less than 15 mL/min/1.73 square meters GFR/1.73 sq M.predicted among non-blacks MDRD (S/P/Bld) [Vol rate/Area] 73 ml/min/1.73sqm Invalid Interpretation Code AO Chemistry S Comment on above: Interpretive Data: GFR Population mean for , Non- Americans Ages 20-29 = 116 mL/min/1.73 sq.m. Ages 30-39 = 107 mL/min/1.73 sq.m. Ages 40-49 = 99 mL/min/1.73 sq.m. Ages 50-59 = 93 mL/min/1.73 sq.m. Ages 60-69 = 85 mL/min/1.73 sq.m. Ages 70+ = 75 mL/min/1.73 sq.m. Chronic Kidney Disease: Less than 60 mL/min/1.73 square meters End Stage Renal Disease: Less than 15 mL/min/1.73 square meters Globulin 3.0 G/dL Invalid Interpretation Code AO ADM SS Glucose [Mass/Vol] 98 mg/dL Normal 83 - 110 mg/dL AO ADM SS Potassium [Moles/Vol] 4.2 mmol/L Normal 3.5 - 5.1 mmol/L AO ADM SS Protein [Mass/Vol] 6.8 G/dL Normal 6.4 - 8.2 G/dL AO ADM SS Sodium [Moles/Vol] 140 mmol/L Normal 136 - 145 mmol/L AO ADM SS Urea nitrogen [Mass/Vol] 17 mg/dL Normal 7 - 18 mg/dL AO ADM SS Urea nitrogen/Creatinine [Mass ratio] 17 ratio Normal 7 - 27 ratio AO ADM SS LABORATORYOrdered By: Susan Queen on 12-28-2023 Albumin DL <= 20 mg/L (U) [Mass/Vol] 7032 mcg/dL Invalid Interpretation Code AO ADM SS Albumin/Creatinine DL <= 20 mg/L (U) [Mass ratio] 75 mcg/mg High 0 - 30 mcg/mg AO ADM SS Creatinine (U) [Mass/Vol] 93.6 mg/dL Normal 39.0 - 259.0 mg/dL AO ADM SS LABORATORYOrdered By: Daisy Delarosa on 12-28-2023 Cholesterol [Mass/Vol] 247 mg/dL High 0 - 2 00 mg/dL AO ADM SS Comment on above: Interpretive Data: C holesterol Reference Interval: Less than 200 Desirable 200-239 Borderline high risk 240 and above High risk Cholesterol in HDL [Mass/Vol] 64 mg/dL High 40 - 60 mg/dL AO ADM SS Cholesterol in LDL [Mass/Vol] 161 mg/dL High 0 - 130 mg/dL AO ADM SS Triglyceride [Mass/Vol] 110 mg/dL Normal 0 - 150 mg/dL AO ADM SS Comment on above: Interpretive Data: T riglyceride Reference Interval: Less than 150 Normal 150-199 Borderline high risk 200-499 High risk 500 or higher Very high risk LIPIDon 12-28-2023 Cholesterol [Mass/Vol] 247 mg/dL High 0-200 [facility] Comment on above: Result Comment: Chol esterol Reference Interval: Less than 200 Desirable 200-239 Borderline high risk 240 and above High risk Performed By: #### L IPID, GFR, CMP #### [place] [id number] Cholesterol in HDL [Mass/Vol] 64 mg/dL High 40-60 [facility] [place] Comment on above: Performed By: #### L IPID, GFR, CMP #### [address] [address] Cholesterol in LDL [Mass/Vol] 161 mg/dL High 0-130 [facility] [place] Comment on above: Performed By: #### L IPID, GFR, CMP #### [address] [address] Triglyceride [Mass/Vol] 110 mg/dL Normal 0-150 [facility] Comment on above: Result Comment: Trig lyceride Reference Interval: Less than 150 Normal 150-199 Borderline high risk 200-499 High risk 500 or higher Very high risk Performed By: #### L IPID, GFR, CMP #### [address] [address] MALBRon 12-28-2023 U Creatinine 93.6 mg/dL Normal 39.0-259.0 [facility] [place] Comment on above: Performed By: #### M ALBR #### [place] [id number] U Microalb 7032 mcg/dL Normal [facility] [place] Comment on above: Performed By: #### M ALBR #### [facility] [address], [place] [address] U Ratio Alb/Cre 75 mcg/mg High 0-30 [facility] [place] Comment on above: Performed By: #### M ALBR #### [facility] [address] [place], [place] [address] CT SOFT TISSUE NECK W/ CONTR Bruno 05-17-2023 CT SOFT TISSUE NECK W/ CONTRAST ORIGINAL EXAMINATION: CT OF THE NECK SOFT TISSUE WITH CONTRAST 05/16/2023 TECHNIQUE: CT of the neck was performed with the administration of intravenous contrast. Multiplanar reformatted images are provided for review. Automated exposure control, iterative reconstruction, and/or weight based adjustment of the mA/kV was utilized to reduce the radiation dose to as low as reasonably achievable. COMPARISON: Ultrasound 06/12/2020 HISTORY: ORDERING SYSTEM PROVIDED HISTORY: Reason for Exam: soft tissue mass left neck FINDINGS: Partial visualization of shunt tubing traversing the right lateral ventricle. Extensive hypodensity involving the left temporal and occipital lobes, suboptimally assessed. 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 Right lens replacement. Metallic artifact emanates from the left medial temporal region. The parotid and submandibular glands appear unremarkable. A subcentimeter right thyroid nodule is present requiring no dedicated imaging follow-up. The thyroid gland is not completely included on the examination. The aero digestive structures appear unremarkable. Shunt tubing traverses the right posterior neck. The shunt tubing traverses anteriorly in the right supraclavicular region. No dominant regional adenopathy. Included paranasal sinuses are predominantly clear. Mastoid air cells are clear. Soft tissue density in the bilateral external auditory canals likely reflects cerumen but would be amenable to direct visualization. Multilevel degenerative changes are identified in the spine. Nonspecific sclerotic lesion with surrounding lucency of the right scapula. The mild anterior height loss at T1. Partial osseous fusion at C7-T1. The patient is edentulous. In the left neck extending from the retroclavicular region to the level of C2, there is a well-defined fluid density lesion which measures 7.5 cm AP by 6.8 cm transverse by 8.2 cm cranial caudal. This was also present on the prior ultrasound although is measuring slightly larger. However, the difference could be due to differences in imaging technique. IMPRESSION: Cystic lesion in the left neck measures slightly larger than on the prior ultrasound, however the difference could be due to differences in imaging technique. 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 Interpreted by: Rosanna Morales MD Preliminary Report By: Rosanna Morales MD Electronically signed By Rosanna Morales MD Dictated Date: 05/17/2023 9:39:17 AM Prelim Date: 05/17/2023 9:55:40 AM Sign Date: 05/17/2023 9:55:40 AM Ordering Provider: SUKUMAR BENJAMIN On License Of [facility] ([place]) .GFRon 05-16-2023 GFR 94 ml/min/1.73sqm On License Of [facility] ([place]) Comment on above: Result Comment: GFR Population mean for , Non- Americans Ages 20-29 = 116 mL/min/1.73 sq.m. Ages 30-39 = 107 mL/min/1.73 sq.m. Ages 40-49 = 99 mL/min/1.73 sq.m. Ages 50-59 = 93 mL/min/1.73 sq.m. Ages 60-69 = 85 mL/min/1.73 sq.m. Ages 70+ = 75 mL/min/1.73 sq.m. Chronic Kidney Disease: Less than 60 mL/min/1.73 square meters End Stage Renal Disease: Less than 15 mL/min/1.73 square meters Performed By: #### G FR, PSA, CMP, LIPID #### [address] [address] GFR Non- 78 ml/min/1.73sqm Normal [facility] ([place]) Comment on above: Result Comment: GFR Population mean for , Non- Americans Ages 20-29 = 116 mL/min/1.73 sq.m. Ages 30-39 = 107 mL/min/1.73 sq.m. Ages 40-49 = 99 mL/min/1.73 sq.m. Ages 50-59 = 93 mL/min/1.73 sq.m. Ages 60-69 = 85 mL/min/1.73 sq.m. Ages 70+ = 75 mL/min/1.73 sq.m. Chronic Kidney Disease: Less than 60 mL/min/1.73 square meters End Stage Renal Disease: Less than 15 mL/min/1.73 square meters Performed By: #### G FR, PSA, CMP, LIPID #### [address] [address] CMPon 05-16-2023 Albumin Level 3.8 G/dL Normal 3.4-4.8 [facility] ([place] Comment on above: Performed By: #### G FR, PSA, CMP, LIPID #### [address] [address] Albumin/Globulin [Mass ratio] 1.2 {ratio} Normal 1.1-2.5 [facility] ([place] Comment on above: Performed By: #### G FR, PSA, CMP, LIPID #### [address] [address] ALP [Catalytic activity/Vol] 65 U/L Normal 40-135 [facility] ([place] Comment on above: Performed By: #### G FR, PSA, CMP, LIPID #### [address] [address] ALT [Catalytic activity/Vol] 25 U/L Normal 16-63 [facility] ([place] Comment on above: Performed By: #### G FR, PSA, CMP, LIPID #### [address] [address] AST [Catalytic activity/Vol] 20 U/L Normal 10-40 [facility] ([place] Comment on above: Performed By: #### G FR, PSA, CMP, LIPID #### [address] [address] Bili Total 1.7 mg/dL High 0.2-1.0 [facility] ([place] Comment on above: Result Comment: Use of this assay is not recommended for patients undergoing treatment with eltrombopag due to the potential for falsely elevated results. Performed By: #### G FR, PSA, CMP, LIPID #### [address] [address] BUN/Creatinine Ratio 19 ratio Normal 7-27 [facility] ([place]) Comment on above: Performed By: #### G FR, PSA, CMP, LIPID #### [address] [address] Calcium [Mass/Vol] 8.9 mg/dL Normal 8.4-10.2 On license of [facility] ([place]) Comment on above: Performed By: #### G FR, PSA, CMP, LIPID #### [address] [address] Chloride [Moles/Vol] 105 mmol/L Normal 98-107 [facility] ([place] Comment on above: Performed By: #### G FR, PSA, CMP, LIPID #### [address] [address] CO2 [Moles/Vol] 28 mmol/L Normal 23-31 [facility] ([place] Comment on above: Performed By: #### G FR, PSA, CMP, LIPID #### [address] [address] Electrolyte Balance 8.0 mEq/L Normal 4.0-15.0 [facility] ([place]) Comment on above: Performed By: #### G FR, PSA, CMP, LIPID #### [address] [address] Globulin 3.2 G/dL Normal [facility] ([place] Comment on above: Performed By: #### G FR, PSA, CMP, LIPID #### [address] [address] Glucose [Mass/Vol] 103 mg/dL Normal 83-110 On license of [facility] ([place] Comment on above: Performed By: #### G FR, PSA, CMP, LIPID #### [address] [address] Potassium [Moles/Vol] 4.8 mmol/L Normal 3.5-5.1 [facility] ([place]) Comment on above: Performed By: #### G FR, PSA, CMP, LIPID #### [address] [address] Sodium [Moles/Vol] 141 mmol/L Normal 136-145 On license of [facility] ([place] Comment on above: Performed By: #### G FR, PSA, CMP, LIPID #### [address] [address] Total Protein 7.0 G/dL Normal 6.4-8.2 [facility] ([place] Comment on above: Performed By: #### G FR, PSA, CMP, LIPID #### [address] [address] Urea nitrogen [Mass/Vol] 18 mg/dL Normal 7-18 [facility] ([place] Comment on above: Performed By: #### G FR, PSA, CMP, LIPID #### [address] [address] Creatinine [Mass/Vol] 0.95 mg/dL Normal 0.70-1.30 [facility] ([place]) Comment on above: Performed By: #### G FR, PSA, CMP, LIPID #### [address] [address] LABORATORYOrdered By: SYSTEM SYSTEM on 05-16-2023 Albumin BCP dye [Mass/Vol] 3.8 G/dL Normal 3.4 - 4.8 G/dL AO ADM SS Albumin/Globulin [Mass ratio] 1.2 {ratio} Normal 1.1 - 2.5 ratio AO ADM SS ALP [Catalytic activity/Vol] 65 U/L Normal 40 - 135 U/L AO ADM SS ALT With P-5'-P [Catalytic activity/Vol] 25 U/L Normal 16 - 63 U/L AO ADM SS AST With P-5'-P [Catalytic activity/Vol] 20 U/L Normal 10 - 40 U/L AO ADM SS Bilirubin [Mass/Vol] 1.7 mg/dL High 0.2 - 1 .0 mg/dL AO ADM SS Comment on above: Interpretive Data: U se of this assay is not recommended for patients undergoing treatment with eltrombopag due to the potential for falsely elevated results. Calcium [Mass/Vol] 8.9 mg/dL Normal 8.4 - 10. 2 mg/dL AO ADM SS Chloride [Moles/Vol] 105 mmol/L Normal 98 - 10 7 mmol/L AO ADM SS CO2 [Moles/Vol] 28 mmol/L Normal 23 - 31 mmol/L AO ADM SS Creatinine [Mass/Vol] 0.95 mg/dL Normal 0.70 - 1.30 mg/dL AO ADM SS Electrolyte Balance 8.0 mEq/L Normal 4.0 - 15 .0 mEq/L AO ADM SS GFR/1.73 sq M.predicted among blacks MDRD (S/P/Bld) [Vol rate/Area] 94 ml/min/1.73sqm Invalid Interpretation Code AO Chemistry S Comment on above: Interpretive Data: GFR Population mean for , Non- Americans Ages 20-29 = 116 mL/min/1.73 sq.m. Ages 30-39 = 107 mL/min/1.73 sq.m. Ages 40-49 = 99 mL/min/1.73 sq.m. Ages 50-59 = 93 mL/min/1.73 sq.m. Ages 60-69 = 85 mL/min/1.73 sq.m. Ages 70+ = 75 mL/min/1.73 sq.m. Chronic Kidney Disease: Less than 60 mL/min/1.73 square meters End Stage Renal Disease: Less than 15 mL/min/1.73 square meters GFR/1.73 sq M.predicted among non-blacks MDRD (S/P/Bld) [Vol rate/Area] 78 ml/min/1.73sqm Invalid Interpretation Code AO Chemistry S Comment on above: Interpretive Data: GFR Population mean for , Non- Americans Ages 20-29 = 116 mL/min/1.73 sq.m. Ages 30-39 = 107 mL/min/1.73 sq.m. Ages 40-49 = 99 mL/min/1.73 sq.m. Ages 50-59 = 93 mL/min/1.73 sq.m. Ages 60-69 = 85 mL/min/1.73 sq.m. Ages 70+ = 75 mL/min/1.73 sq.m. Chronic Kidney Disease: Less than 60 mL/min/1.73 square meters End Stage Renal Disease: Less than 15 mL/min/1.73 square meters Globulin 3.2 G/dL Invalid Interpretation Code AO ADM SS Glucose [Mass/Vol] 103 mg/dL Normal 83 - 110 mg/dL AO ADM SS Potassium [Moles/Vol] 4.8 mmol/L Normal 3.5 - 5.1 mmol/L AO ADM SS Prostate specific Ag [Mass/Vol] 3.81 ng/mL Normal 0.00 - 4.00 ng/mL AO ADM SS Protein [Mass/Vol] 7.0 G/dL Normal 6.4 - 8.2 G/dL AO ADM SS Sodium [Moles/Vol] 141 mmol/L Normal 136 - 145 mmol/L AO ADM SS Urea nitrogen [Mass/Vol] 18 mg/dL Normal 7 - 18 mg/dL AO ADM SS Urea nitrogen/Creatinine [Mass ratio] 19 ratio Normal 7 - 27 ratio AO ADM SS LABORATORYOrdered By: Asuncion Lee on 05-16-2023 Cholesterol [Mass/Vol] 233 mg/dL High 0 - 2 00 mg/dL AO ADM SS Comment on above: Interpretive Data: C holesterol Reference Interval: Less than 200 Desirable 200-239 Borderline high risk 240 and above High risk Cholesterol in HDL [Mass/Vol] 59 mg/dL Normal 40 - 60 mg/dL AO ADM SS Cholesterol in LDL [Mass/Vol] 149 mg/dL High 0 - 130 mg/dL AO ADM SS Triglyceride [Mass/Vol] 123 mg/dL Normal 0 - 150 mg/dL AO ADM SS Comment on above: Interpretive Data: T riglyceride Reference Interval: Less than 150 Normal 150-199 Borderline high risk 200-499 High risk 500 or higher Very high risk LIPIDon 05-16-2023 Cholesterol [Mass/Vol] 233 mg/dL High 0-200 [facility] ([place] Comment on above: Result Comment: Chol esterol Reference Interval: Less than 200 Desirable 200-239 Borderline high risk 240 and above High risk Performed By: #### G FR, PSA, CMP, LIPID #### [address] [address] Cholesterol in HDL [Mass/Vol] 59 mg/dL Normal 40-60 [facility] ([place] Comment on above: Performed By: #### G FR, PSA, CMP, LIPID #### [place] [address] [address] Cholesterol in LDL [Mass/Vol] 149 mg/dL High 0-130 [facility] ([place] Comment on above: Performed By: #### G FR, PSA, CMP, LIPID #### [address] [address] Triglyceride [Mass/Vol] 123 mg/dL Normal 0-150 A [facility] ([place]) Comment on above: Result Comment: Trig lyceride Reference Interval: Less than 150 Normal 150-199 Borderline high risk 200-499 High risk 500 or higher Very high risk Performed By: #### G FR, PSA, CMP, LIPID #### [address] [address] PSAon 05-16-2023 Prostate Specific Antigen 3.81 ng/mL Normal 0.00-4.00 [facility] ([place] Comment on above: Performed By: #### G FR, PSA, CMP, LIPID #### [address] [address] .Auto Diffon 07-25-2022 Basophil, Absolute 0.0 10 3/mcL Normal 0.0-0.3 [facility] ([place] Comment on above: Performed By: #### P SA, ANEU, ADIFF, CBC, GFR, CMP #### [address] [address] Basophils/100 WBC (Bld) 0.3 % Normal 0.0-2.5 A [facility] ([place]) Comment on above: Performed By: #### P SA, ANEU, ADIFF, CBC, GFR, CMP #### [address] [address] Eosinophil, Absolute 0.2 10 3/mcL Normal 0.0-0.7 [facility] ([place] Comment on above: Performed By: #### P SA, ANEU, ADIFF, CBC, GFR, CMP #### [address] [address] Eosinophils/100 WBC (Bld) 2.5 % Normal 0.0-6.0 [facility] ([place] Comment on above: Performed By: #### P SA, ANEU, ADIFF, CBC, GFR, CMP #### [address] [address] Lymphocyte, Absolute 2.0 10 3/mcL Normal 0.9-4.3 [facility] ([place] Comment on above: Performed By: #### P SA, ANEU, ADIFF, CBC, GFR, CMP #### [address] [address] Lymphocytes/100 WBC (Bld) 26.2 % Normal 20.0-40.0 [facility] ([place]) Comment on above: Performed By: #### P SA, ANEU, ADIFF, CBC, GFR, CMP #### [address] [address] Monocyte, Absolute 0.5 10 3/mcL Normal 0.1-1.4 [facility] ([place] Comment on above: Performed By: #### P SA, ANEU, ADIFF, CBC, GFR, CMP #### [address] [address] Monocytes/100 WBC (Bld) 6.1 % Normal 2.0-13.0 A [facility] ([place]) Comment on above: Performed By: #### P SA, ANEU, ADIFF, CBC, GFR, CMP #### [address] [address] Neutrophils/100 WBC (Bld) 64.9 % Normal 50.0-75.0 [facility] ([place] Comment on above: Performed By: #### P SA, ANEU, ADIFF, CBC, GFR, CMP #### [address] [address] .GFRon 07-25-2022 GFR Non- >60 Normal [facility] ([place] Comment on above: Result Comment: GFR Population mean for , Non- Americans Ages 20-29 = 116 mL/min/1.73 sq.m. Ages 30-39 = 107 mL/min/1.73 sq.m. Ages 40-49 = 99 mL/min/1.73 sq.m. Ages 50-59 = 93 mL/min/1.73 sq.m. Ages 60-69 = 85 mL/min/1.73 sq.m. Ages 70+ = 75 mL/min/1.73 sq.m. Chronic Kidney Disease: Less than 60 mL/min/1.73 square meters End Stage Renal Disease: Less than 15 mL/min/1.73 square meters Performed By: #### P SA, ANEU, ADIFF, CBC, GFR, CMP #### [address] [address] GFR >60 Normal [facility] ([place] Comment on above: Result Comment: GFR Population mean for , Non- Americans Ages 20-29 = 116 mL/min/1.73 sq.m. Ages 30-39 = 107 mL/min/1.73 sq.m. Ages 40-49 = 99 mL/min/1.73 sq.m. Ages 50-59 = 93 mL/min/1.73 sq.m. Ages 60-69 = 85 mL/min/1.73 sq.m. Ages 70+ = 75 mL/min/1.73 sq.m. Chronic Kidney Disease: Less than 60 mL/min/1.73 square meters End Stage Renal Disease: Less than 15 mL/min/1.73 square meters Performed By: #### P SA, ANEU, ADIFF, CBC, GFR, CMP #### [address] [address] .NEUABSon 07-25-2022 Neutrophil, Absolute 4.9 10 3/mcL Normal 2.3-8.1 [facility] ([place] Comment on above: Performed By: #### P SA, ANEU, ADIFF, CBC, GFR, CMP #### [address] [address] CBCon 07-25-2022 Erythrocyte distribution width (RBC) [Ratio] 14.5 % Normal 11.5-15.5 [facility] ([place] Comment on above: Performed By: #### P SA, ANEU, ADIFF, CBC, GFR, CMP #### [address] [address] Hematocrit (Bld) [Volume fraction] 43.1 % Normal 40.0-52.0 [facility] ([place] Comment on above: Performed By: #### P SA, ANEU, ADIFF, CBC, GFR, CMP #### [place] [address] Hgb 14.3 G/dL Normal 13.0-17.5 [facility] ([place] Comment on above: Performed By: #### P SA, ANEU, ADIFF, CBC, GFR, CMP #### [place] [address] MCH (RBC) [Entitic mass] 30.0 pg Normal 27.0-33.0 [facility] ([place] Comment on above: Performed By: #### P SA, ANEU, ADIFF, CBC, GFR, CMP #### [place] [address] MCHC 33.1 G/dL Normal 32.0-36.0 [facility] ([place] Comment on above: Performed By: #### P SA, ANEU, ADIFF, CBC, GFR, CMP #### [place] [address] MCV (RBC) [Entitic vol] 90.6 fL Normal 81.0-100.0 A [facility] ([place]) Comment on above: Performed By: #### P SA, ANEU, ADIFF, CBC, GFR, CMP #### [place] [address] Platelet 197 10 3/mcL Normal 150-450 [facility] ([place] Comment on above: Performed By: #### P SA, ANEU, ADIFF, CBC, GFR, CMP #### [place] [address] Platelet mean volume (Bld) [Entitic vol] 9.1 fL Normal 6.4-10.5 [facility] ([place] Comment on above: Performed By: #### P SA, ANEU, ADIFF, CBC, GFR, CMP #### [place] [address] RBC 4.76 10 6/mcL Normal 4.50-6.00 [facility] ([place] Comment on above: Performed By: #### P SA, ANEU, ADIFF, CBC, GFR, CMP #### [address] [address] WBC 7.5 10 3/mcL Normal 4.5-10.8 [facility] ([place] Comment on above: Performed By: #### P SA, ANEU, ADIFF, CBC, GFR, CMP #### [address] [address] CMPon 07-25-2022 Albumin Level 4.1 G/dL Normal 3.2-4.8 [facility] ([place] Comment on above: Performed By: #### P SA, ANEU, ADIFF, CBC, GFR, CMP #### [place] [id number] Albumin/Globulin [Mass ratio] 1.4 {ratio} Normal 0.9-1.6 [facility] ([place] Comment on above: Performed By: #### P SA, ANEU, ADIFF, CBC, GFR, CMP #### [place] [address] ALP [Catalytic activity/Vol] 63 U/L Normal 38-126 [facility] ([place] Comment on above: Performed By: #### P SA, ANEU, ADIFF, CBC, GFR, CMP #### [place] [id number] ALT [Catalytic activity/Vol] 14 U/L Normal 12-55 [facility] ([place] Comment on above: Performed By: #### P SA, ANEU, ADIFF, CBC, GFR, CMP #### [place] [id number] AST [Catalytic activity/Vol] 24 U/L Normal 8-34 [facility] ([place] Comment on above: Performed By: #### P SA, ANEU, ADIFF, CBC, GFR, CMP #### [place] [id number] Bili Total 1.10 mg/dL Normal 0.20-1.20 [facility] ([place] Comment on above: Result Comment: Use of this assay is not recommended for patients undergoing treatment with eltrombopag due to the potential for falsely elevated results. Performed By: #### P SA, ANEU, ADIFF, CBC, GFR, CMP #### [place] [address] BUN/Creatinine Ratio 27.1 ratio High 10.0-22.0 [facility] ([place] Comment on above: Performed By: #### P SA, ANEU, ADIFF, CBC, GFR, CMP #### [place] [address] Calcium [Mass/Vol] 9.6 mg/dL Normal 8.7-10.4 On license of [facility] ([place]) Comment on above: Performed By: #### P SA, ANEU, ADIFF, CBC, GFR, CMP #### [place] [id number] Chloride [Moles/Vol] 109 mmol/L Normal 98-110 [facility] ([place] Comment on above: Performed By: #### P SA, ANEU, ADIFF, CBC, GFR, CMP #### [place] [id number] CO2 [Moles/Vol] 24 mmol/L Normal 22-32 [facility] ([place] Comment on above: Performed By: #### P SA, ANEU, ADIFF, CBC, GFR, CMP #### [place] [address] Creatinine [Mass/Vol] 0.70 mg/dL Normal 0.60-1.40 [facility] ([place]) Comment on above: Performed By: #### P SA, ANEU, ADIFF, CBC, GFR, CMP #### [place] [address] Electrolyte Balance 10.0 mEq/L Normal 4.0-15.0 [facility] ([place]) Comment on above: Performed By: #### P SA, ANEU, ADIFF, CBC, GFR, CMP #### [place] [id number] Globulin 2.9 G/dL Normal 1.5-3.8 [facility] ([place] Comment on above: Performed By: #### P SA, ANEU, ADIFF, CBC, GFR, CMP #### [place] [id number] Glucose [Mass/Vol] 100 mg/dL Normal 82-115 On license of [facility] ([place] Comment on above: Performed By: #### P SA, ANEU, ADIFF, CBC, GFR, CMP #### [place] [address] Potassium [Moles/Vol] 4.4 mmol/L Normal 3.5-5.0 [facility] ([place] Comment on above: Performed By: #### P SA, ANEU, ADIFF, CBC, GFR, CMP #### [place] [id number] Sodium [Moles/Vol] 143 mmol/L Normal 136-145 On license of [facility] ([place] Comment on above: Performed By: #### P SA, ANEU, ADIFF, CBC, GFR, CMP #### [place] [address] Total Protein 7.0 G/dL Normal 5.7-8.2 [facility] ([place] Comment on above: Result Comment: No te - New Reference Range in effect 19 Performed By: #### P SA, ANEU, ADIFF, CBC, GFR, CMP #### [place] [address] Urea nitrogen [Mass/Vol] 19.0 mg/dL Normal 8.0-22.0 [facility] ([place] Comment on above: Performed By: #### P SA, ANEU, ADIFF, CBC, GFR, CMP #### [place] [address] PSAon 07-25-2022 Prostate Specific Antigen 2.72 ng/mL Normal 0.02-4.00 [facility] ([place] Comment on above: Result Comment: Trisha ent results determined by assays using different manufacturers for methods may not be comparable. Performed By: #### P SA, ANEU, ADIFF, CBC, GFR, CMP #### [address] [address] Basophil percentageOrdered B y: Dr. Vail on 05-08-2022 Basophil percentage 0-5 SEEN /hpf 0-5 [facility] Bilirubin Test strip Ql (U)O rdered By: Dr. Vail on 05-08-2022 Bilirubin Ql (U) Negative Negative [facility] Ketones Test strip Ql (U)Ord ered By: Dr. Vail on 05-08-2022 Ketones Ql (U) 15 mg/dl Negative [facility] Mucus LM Ql (Urine sed)Order ed By: Dr. Vail on 05-08-2022 Mucus Ql (Urine sed) 0 SEEN /hpf [facility] Nitrite Test strip Ql (U)Ord ered By: Dr. Vail on 05-08-2022 Nitrite Ql (U) Negative Negative [facility] Protein Test strip Ql (U)Ord ered By: Dr. Vail on 05-08-2022 Protein Ql (U) 100 mg/dl Negative [facility] Squamous epithelial cells de tection in urine sediment by light microscopyOrdered By: Dr. Vail on 05-08-2022 Epithelial cells.squamous LM Ql (Urine sed) 0 SEEN /hpf 0-5 [facility] Urine blood detectionOrdered By: Dr. Vail on 05-08-2022 RBC Ql (U) 250 /ul Negative [facility] RBC Ql (U) > 100 SEEN /hpf 0-5 [facility] Urine clarityOrdered By: Dr. Vail on 05-08-2022 Clarity (U) Sl. Cloudy Clear [facility] Urine color determinationOrd ered By: Dr. Vail on 05-08-2022 Color (U) Mary Yellow [facility] Urine glucose detectionOrder ed By: Dr. Vail on 05-08-2022 Glucose Ql (U) Normal mg/dl Normal [facility] Urine leukocyte esterase det ection by dipstickOrdered By: Dr. Vail on 05-08-2022 Leukocyte esterase Test strip Ql (U) 100 /ul Negative [facility] Urine pHOrdered By: Dr. Williams mishra on 05-08-2022 pH (U) 6.0 [pH] 5.0 - 8.0 [facility] Urine sediment bacteria coun t by microscopy (number/high power field)Ordered By: Dr. Vail on 05-08-2022 Bacteria LM.HPF (Urine sed) [#/Area] RARE /hpf None Seen [facility] Urine specific gravity measu rementOrdered By: Dr. Vail on 05-08-2022 Specific gravity (U) [Rel density] 1.015 1.002-1.030 [facility] Urobilinogen Auto test strip Ql (U)Ordered By: Dr. Vail on 05-08-2022 Urobilinogen Ql (U) Normal mg/dl Normal [facility] Vital Signs Date Time Vital Sign Value Performing Clinician Faci lity 05-31-2024 10:52-0400 Body height 177.[address] Maco Victor MD Work Phone: [facility] 05-31-2024 10:52-0400 Body mass index (BMI) [Ratio] 27.5 kg/m2 Dr. Maco Victor MD Work Phone: [facility] 05-31-2024 10:52-0400 Body weight 87.[address] Maco Victor MD Work Phone: [facility] 05-31-2024 10:52-0400 Diastolic blood pressure 96 mm[Hg] Dr. Maco Victor MD Work Phone: [facility] 05-31-2024 10:52-0400 Heart rate 65 /min Dr. Maco Victor MD Work Phone: [facility] 05-31-2024 10:52-0400 Respiratory rate 18 /min Dr. Maco Victor MD Work Phone: [facility] 05-31-2024 10:52-0400 SaO2% (BldA) [Mass fraction] 96 % Dr. Maco Victor MD Work Phone: [facility] 05-31-2024 10:52-0400 Systolic blood pressure 190 mm[Hg] Dr. Maco Victor MD Work Phone: [facility] 05-08-2022 18:05-0400 Diastolic blood pressure 69 mm[Hg] [facility] 05-08-2022 18:05-0400 Heart rate 72 /min [facility] 05-08-2022 18:05-0400 Respiratory rate 15 /min [facility] 05-08-2022 18:05-0400 SaO2% (BldA) [Mass fraction] 98 % [facility] 05-08-2022 18:05-0400 Systolic blood pressure 142 mm[Hg] [facility] 05-08-2022 16:20-0400 Body height 177.8 cm [facility] 05-08-2022 16:20-0400 Body mass index (BMI) [Ratio] 28.4 kg/m2 [facility] 05-08-2022 16:20-0400 Body temperature 99 [degF] [facility] 05-08-2022 16:20-0400 Body weight 89.81 kg [facility] Encounters Encounter Date Encounter Type Care Provider Facility Start: 08-20-2024 ambulatory [facility] Facility:[facility] Start: 07-12-2024 End: 07-12-[address] Maco Victor MD Work Phone: [facility] Work Phone: Start: 07-12-2024 End: 07-12-[address] Christophe Curtis MD -[facility] Work Phone: Start: 07-12-2024 End: 07-12-2024 ambulatory Christophe Curtis Facility:[facility] Start: 05-31-2024 End: 05-31-[address] Christophe Curtis MD -[facility] Work Phone: Start: 05-31-2024 End: 05-31-2024 ambulatory Christophe Curtis Facility:[facility] Start: 12-28-2023 End: 01-01-2024 ambulatory SUKUMAR SOURAV WOODWORKING MACHINIST-HOUSECLEANER Facility:[facility] Start: 12-28-2023 End: 01-01-2024 Outreach Lab SUKUMAR SOURAV WOODWORKING MACHINIST-HOUSECLEANER [facility] Start: 05-16-2023 End: 05-17-2023 ambulatory SUKUMAR SOURAV WOODWORKING MACHINIST-HOUSECLEANER Facility:[facility] Start: 05-16-2023 End: 05-16-2023 Patient encounter procedure SUKUMAR SOURAV WOODWORKING MACHINIST-HOUSECLEANER [facility] Start: 05-08-2022 End: 05-08-2022 Emergency department patient visit [facility] Start: 12-02-2015 End: 12-09-2015 ambulatory EVA CHAVE[facility] Procedures Date Procedure Procedure Detail Performing Clinician Start: 07-12-2024 CT of soft tissues o f neck with contrast Dr. Maco Victor MD Work Phone: Plan of Treatment Date Care Activity Detail Author Start: 05-08-2022 [facility] Bacteria identified in Urine by Culture Urine Culture [facility] Patient Education ED Urinary Ret ention, Male [facility] Work Phone: Patient referral [facility] Work Phone: Immunizations Immunization Date Immunization Notes Care Provider [facility] 05-21-2013 pneumococcal polysaccharide vaccine, 23 valent SUKUMAR SOURAV WOODWORKING MACHINIST-HOUSECLEANER [facility] 05-21-2013 tetanus toxoid, redu evens diphtheria toxoid, and acellular pertussis vaccine, adsorbed SUKUMAR SOURAV WOODWORKING MACHINIST-HOUSECLEANER [facility] 05-21-2013 zoster vaccine, live SUKUMAR H OSTETLER WOODWORKING MACHINIST-HOUSECLEANER [facility] Payers Date Payer Category Payer Unknown [id number] 2023 Self-pay 1950 Unknown [id number] 1950 Unknown [id number] [id number] Unknown [id number] [id number] [id number] Unknown [id number] [id number] [id number] Unknown [id number] 2.16.8 [id number] Social History Date Type Detail Facility Start: [facility]-08-2022 [facility] Start: 1950 Sex Assigned At Male [facility] Start: 03-05-2019 End: 05-08-2022 Tobacco smoking status Never smoked tobacco (finding) [facility] Radiology Diagnostic study note 07-14-2024 Note Date & Type Note Facility 07-14-2024 Radiology Diagnostic study note [facility] Imaging Services [address] [place], [place] [address] Soft Tissue Neck WITH Contrast MR#: [id number] Acct: [id number] Name: MICHELLE RODRIGUEZ Rep #: [id number] : 1950 M 74 From: Kristen Bañuelos MD PCP: Dr. Maco Victor MD Status: REG CLI Study:Soft Tissue Neck WITH Contrast Date of Exam: 07/12/24 Exam# [id number] Ordering Dr: Melissa Curtis MD PROCEDURE: SOFT TISSUE NECK WITH CONTRAST 07/12/2024 REASON FOR EXAM: MASS OF LEFT SIDE OF NECK TECHNIQUE: CT of the soft tissues of the neck from the orbits to the upper mediastinum withintravenous contrast. CONTRAST: Isovue-300 50 VOLUME: 100 mL One or more dose reduction techniques were used (e.g., Automated exposure control, adjustment of the mA and/or kV according to patient size, use of iterative reconstruction technique). RADIATION DOSE SUMMARY: CTDlvol: 14.2 mGy DLP: 320 mGycm COMPARISON: None. FINDINGS: Well-defined left supraclavicular benign nonenhancing cyst is noted measuring 9.2 x 6.9 x 9.8 cm in its largest craniocaudal, transverse and anteroposterior dimensions respectively. The cyst is extending to the posterior aspect of the left carotid space, posterior to the left sternocleidomastoid muscle with displacement of the adjacent muscles. Unremarkable right ventriculoperitoneal shunt tube. Hypodensity of the left occipital lobe, probably chronic. Diffuse spondylosis. Moderate carotid artery calcifications. Airway: Unremarkable. Salivary glands: Unremarkable. Lymph nodes: No lymphadenopathy is seen. Thyroid: Unremarkable. Vasculature: No acute abnormality. Orbits: Unremarkable. Paranasal sinuses and mastoids: Unremarkable. Lung apices: Unremarkable. Upper mediastinum: Unremarkable. Bones: No acute abnormality. CT/Soft Tissue Neck WITH Contrast IMPRESSION: Well-defined left supraclavicular benign nonenhancing cyst is noted measuring 9.2 x 6.9 x 9.8 cm in its largest craniocaudal, transverse and anteroposterior dimensions respectively. The cyst is extending to the posterior aspect of the left carotid space, posterior to the left sternocleidomastoid muscle with displacement of the adjacent muscles. Unremarkable right ventriculoperitoneal shunt tube. Hypodensity of the left occipital lobe, probably chronic. Diffuse spondylosis. Moderate carotid artery calcifications. Reading Location: [place] [address] CC: Dr. Christophe Curtis MD; Dr. Maco Victor MD ~ Ladle Puller: Signed [facility] Evaluation note 05-31-2024 Note Date & Type Note Facility 05-31-2024 Evaluation note Diagnosis Onset Date Resolution Mass of left side of neck acute May 31, 2024 10:17am [facility] Work Phone: Discharge summary 05-08-2022 Note Date & Type Note Facility 05-08-2022 Discharge summary Note Date/Time May 08, 2022 6:00 pm [facility] Medical Records Department [address] [place] [address] Emergency Department Summary 05/08/22 MR#: [id number] Acct: [id number] Name: MICHELLE RODRIGUEZ Rep #:[id number] : 1950 71 From: Carroll Vail DO PCP: Dr. Maco Victor MD Status:REG ER Location: ED HPI History of Present Illness Chief Complaint: Complaint Narrative Narrative: 71-year-old male with urinary retention. He states that he was having some trouble urinating yesterday but was able to void. He states that he did have touse the restroom multiple times and could not find a good stream. Today the patient started off being able to urinate and has not been able to urinate for couple of hours he was seen today at his primary care's office he tried to put in a catheter but could not. He does have any flank pain. He denies dysuria. PFSH PFS Medical History Aneurysm Stroke Home Medications aspirin 81 mg tablet 81 mg PO DAILY 05/08/22 [History Last Taken Unknown] Allergy/AdvReac Type Severity Reaction Status Date / Time No Known Allergies Allergy Verified 05/08/22 16:22 Social History Smoking Status: Never smoker ROS ROS ED Constitutional Constitutional ED: Denies chills or fever(s) Eyes Eyes: Denies change in vision ENT ENT ED: Denies rhinorrhea or sore throat Cardiovascular Cardiovascular: Denies chest pain or palpitations Respiratory/Chest Respiratory/Chest: Denies cough or dyspnea Gastrointestinal Gastrointestinal: Denies abdominal pain, nausea or vomiting Genitourinary Genitourinary ED: Denies dysuria or hematuria Musculoskeletal Musculoskeletal: Denies arthralgias Integumentary Denies abscess Neurologic Neurologic: Denies headache(s) or paresthesias EXAM Physical Exam Const Vital Signs: 05/08/22 16:20 05/08/22 16:59 05/08/22 17:22 Temperature 99 F Temperature Source Temporal Pulse Rate 81 73 72 Respiratory Rate 18 20 H 16 Blood Pressure 216/104 H 192/100 H 183/95 H Blood Pressure Mean 141 130 124 Pulse Ox 97 94 95 Oxygen Delivery Method Room Air Room Air Room Air Positive well nourished General Appearance ED: NAD HEENT Reports moist mucous membranes normocephalic and atraumatic Eyes PERRL and EOMs intact bilaterally Resp normal respiratory effort Cardio regular rate GI non-tender and non-distended Back/Spine no CVA tenderness Neuro oriented x3 and CN's II-XII intact bilaterally Sensorium / Orientation: alert Motor Exam: strength 5/5 throughout Psych mental status grossly normal MDM MDM MDM Narrative Medical decision making narrative: Patient presented with urinary tension. He initially was hypertensive I suspectthis is due to urinary retention. Hill catheter was placed without difficulty. There was some blood in his urine and some clots. Urinalysis negative for UTI however. Patient states he is on currently 2 prostate medicines at home. He states his primary care physician wanted him to follow-up with a urologist so I will give him Dr. Galvin. I do not believe he needs blood work. His blood pressure is improving. Impression: 1. Acute urinary retention Lab Data Labs: Laboratory Results - last 24 hr 05/08/22 16:52 Urine Color Mary Urine Clarity Sl. Cloudy Urine pH 6.0 Ur Specific [place] 1.015 Urine Protein 100 H Urine Glucose (UA) Normal Urine Ketones 15 H Urine Occult Blood 250 H Urine Nitrite Negative Urine Bilirubin Negative Urine Urobilinogen Normal Ur Leukocyte Esterase 100 H Urine RBC > 100 SEEN Urine WBC 0-5 SEEN Ur Squamous Epith Cells 0 SEEN Urine Bacteria RARE Urine Mucus 0 SEEN Discharge Plan Triage Chief Complaint: Complaint ED Provider: Carroll Vail Dx/Rx/DC Orders Instructions: ED Urinary Retention, Male Prescriptions: No Action aspirin 81 mg Tablet 81 mg PO DAILY Primary Care Provider: Maco Victor Referrals: Maikol Deal MD [Med Staff - Active Staff] - 5-7 Days Maco Victor MD [Primary Care Provider] - Disposition Disposition: Home, Self Care What to do if you have Problems For any increased pain, shortness of breath, bleeding, nausea or vomiting, chestpain, or any unexpected problems, contact your Primary Care Provider. Call [facility] ([phone]) or report to the closest Emergency Room. Call 911 if necessary. 05/08/22 1800 <Electronically signed by Carroll Vail DO> Cosigner Signature (if applicable): CC: Dr. Maco Victor MD ~ Signed [facility] Work Phone: Evaluation + Plan note LaboratoryRadiology Note Date & Type Note Facility Evaluation + Plan note Future Appointments Appointment Date:05/26/2023 11:00:00 AM Scheduled Provider:SUKUMAR BENJAMIN Location:[facility] Appointment Type:PC OV Future Scheduled TestsAlbumin/Creatinine Ratio, Random Urine 04/21/23CT Soft Tissue Neck w/ Contrast 05/16/23 [facility] Evaluation + Plan note LaboratoryRadiology Note Date & Type Note Facility Evaluation + Plan note Future Appointments Appointment Date:06/13/2024 08:00:00 AM Scheduled Provider: Location:[facility] Appointment Type:PC Nurse Lab Appointment Date:06/21/2024 02:00:00 PM Scheduled Provider:SUKUMAR BENJAMIN Location:[facility] Appointment Type:PC OV Future Scheduled TestsProstate Specific Antigen 06/20/24Prostate Specific Antigen 05/24/23Lipid Profile 06/20/24Albumin/Creatinine Ratio, Random Urine 04/21/23Complete Metabolic Panel 06/20/24CT Soft Tissue Neck w/ Contrast 05/16/23 [facility] Evaluation note Note Date & Type Note Facility Evaluation note No assessment information availa [facility] Work Phone: Hospital course Narrative Note Date & Type Note Facility Hospital course Narrative No data available for this section [facility] Hospital Discharge instructions Note Date & Type Note Facility Hospital Discharge instructions No data available for this section [facility] Progress note Note Date & Type Note Facility Progress note No data available for this section [facility] Reason for referral (narrative) Note Date & Type Note Facility Reason for referral (narrative) No reason for referral information available [facility] Work Phone: Chief Complaint and Reason for Visit Chief Complaint UNABLE TO URINATE Chief Complaint Admit Date CYST L SIDE NECK May 31, 2024 10: 17am MASS OF LEFT SIDE OF NECK July 12, 2024 5:33pm Reason for Visit Admit Date Mass of left side of neck May 31 10:17am Advance Directives No Advanced Directives Records Found Advance Directive Response Recorded Date/ Time Living Will Yes May 08, 2022 4:57pm Power of Inter Fold Roll Cutter No May 08 4:57pm Summary Purpose Family History No Family History Records Found Additional Source Comments Care Teams (unrecognized sec tion and content) Team Status: Active Member Role Status Dates Dr. Maco Victor MD Primary Care Provider Active Team Status: Inactive Member Role Status Dates Dr. Carroll Vail DO Emergency Provider Active Dr. Maco Victor MD Primary Care Provider Active Team Status: Inactive Member Role Status Dates Dr. Maco Victro MD Primary Care Provider Active Start: May 31, 2024 End: May 31, 2024 Dr. Maco Victor MD Referring Provider Active Start: May 31, 2024 End: May 31, 2024 Dr. Christophe Curtis MD Attending Provider Active Start: May 31, 2024 End: May 31, 2024 Team Status: Inactive Member Role Status Dates Dr. Maco Victor MD Primary Care Provider Active Start: July 12, 2024 End: July 12, 2024 Dr. Christophe Curtis MD Attending Provider Active Start: July 12, 2024 End: July 12, 2024 Dr. Christophe Curtis MD Referring Provider Active Start: July 12, 2024 End: July 12, 2024 Goals (unrecognized section and content) Goals may be documented in a n alternate section No data available for this section No data available for this sectionGoals may be documented in an alternate section (unrecognized sect ion and content) No Status Records FoundNo Status Records FoundNo Status Records FoundNo Status Records Found INFORMATION SOURCE (unrecogn ized section and content) DATE CREATED AUTHOR 05/18/2023 [facility] ([place]) DATE CREATED AUTHOR AUTHOR'S ORGANIZ ATION 07/09/2023 [facility] DATE CREATED AUTHOR AUTHOR'S ORGANIZ ATION 01/04/2024 [facility] DATE CREATED AUTHOR AUTHOR'S ORGANIZ ATION 08/17/2024 [facility] FOR RECORDS PERTAINING TO PATIENTS WHO ARE OR HAVE BEEN ENROLLED IN A CHEMICAL DEPENDENCY/SUBSTANCEABUSE PROGRAM, SOME INFORMATION MAY BE OMITTED. This clinical summary was aggregated from multiple sources. Caution should be exercised in using it in the provision of clinical care. This summary normalizes information from multiple sources, and as a consequence, information in this document may materially change the coding, format and clinical context of patient data. In addition, data may be omitted in some cases. CLINICAL DECISIONS SHOULD BE BASED ON THE PRIMARY CLINICAL RECORDS. [employer] provides no warranty or guarantee of the accuracy or completeness of information in this document.
--- NOTE | 2024-08-20 11:29 | PCM.OPRPT ---
Operative Report (Standard) Operative Information Date of Procedure: 08/20/24 Pre-Operative Diagnosis: Left neck mass Post-Operative Diagnosis: Left neck mass/cyst Surgery/Procedure Performed: 1) excision of left neck mass/cyst, 9 x 9 cm, subfascial beneath the platysma muscle (CPT 25971) 2) complex closure left neck wound, 9 cm (CPT 11319, 67090) wire machine cutter: Yes Certified Professional Midwife: Bradley Hurtado Tasks completed by assistant store leader: Retracting Type of Anesthesia: General/Supplemental (15 cc of 0.25% Marcaine with 1:200,000 epinephrine ) RN Documented Start/Stop Times: Operation Date: 08/20/24 10:45 Case Time Into Pre-Op 08/20/24 09:15 Out of Pre-Op 08/20/24 10:52 Anesthesia Start 08/20/24 10:54 Into Room 08/20/24 10:54 Procedure Start 08/20/24 11:44 Procedure End 08/20/24 12:29 Anesthesia End 08/20/24 12:38 Out of Room 08/20/24 12:38 Into Recovery 08/20/24 12:40 Out of Recovery 08/20/24 13:10 Into Phase II Recovery 08/20/24 13:11 Out of Phase II 08/20/24 14:39 Procedure Start Time: 11:44 Procedure Stop Time: 12:29 Select all DRAINS/GRAFTS/IMPLANTS that apply: Drains (19 Fr lobito drain ) Drain details: Tunneled into the wound bed Estimated Blood Loss: 20 cc Specimen collected: Yes Description of specimen(s) removed: Cyst wall and contents, also fluid aspirate for cytology Description of surgery: Indications: Richard Rodriguez is a 74-year-old male with a complex left neck cyst who presents today for excision. He understands the risk benefits and alternatives to the procedure. Procedure details: Patient was correctly identified in preoperative holding and the mass was marked. He was taken back to the operating room where he was administered general anesthesia and he was prepped and draped in sterile fashion. The above-noted local block was also applied. All proper timeouts were performed. 15 blade scalpel was used to make a direct transverse incision over the mass and dissection was carefully taken with tenotomy scissors to the level of the platysma muscle. The mass was located beneath the platysma muscle, and the platysma was carefully transected with Bovie electrocautery. The mass was then circumferentially excised and drained (it was a complex cystic mass). The fluid was sent to cytology and the cyst wall was circumferentially excised to the level of the deep cervical fascia (beneath the platysma and superficial cervical fascia). Blood vessels surrounding the mass were controlled with hemoclips. The wound was irrigated with copious amounts normal saline and Irrisept. Hemostasis was also obtained with Bovie electrocautery as well as Milton powder. A 19 Croatian Lobito drain was placed at the base of the wound. The mass/complex cyst measured 9 x 9 cm with all of its fluid content intact. The wound was then closed for complex closure of 9 cm with 3-0 Vicryl progressive tension sutures to the base of the wound to the overlying platysma and fascia to obliterate space, followed by 3-0 Vicryl platysmal repair followed by a 3-0 Monocryl deep dermal suture layer and 3-0 Monocryl running subcuticular and Prineo layer. The closure was complex because of the progressive tension sutures. The drain was holding suction at the end of the case. The patient was awakened and taken to the PACU in stable condition. Postoperative plan: Admit for overnight observation and learn how to take care of the drain. Follow pathology. Surgical Findings: Complex cystic mass in the left neck which was subfascial, containing fluid that was sent for cytology. Complications Complications: No Admit VTE Documentation VTE Mechan Device Prophylaxis: SCD's
[2024-08-20] MEDS: Bupiv/Epi 0.25% 30 ML Vial (12:24)
[2024-08-20] MEDS: Lidocaine 1% /Epi 1:100 (20ml) 20 ML Vial (12:25)
--- NOTE | 2024-08-20 12:45 | PCM.POST.ANE ---
Anesthesia: Postop Eval I Current Vital Signs Temperature: 97.2 F Pulse Rate: 88 Blood Pressure: 178/91 Respiratory Rate: 20 Pulse Ox: 94 Oxygen Delivery Method: Room Air Assessment Airway patent: No Spontaneous unlabored respirations: No Mental status: Awake and Calm nausea: No Vomiting: No Anesthesia Complication: No Fluid Hydration Crystalloid volume administer (ml): 1,000 Total IV fluid infused: 1,000 Progress Note Anesthesia document: Postop Eval 1 completed: Yes
--- NOTE | 2024-08-20 19:11 | POSTOPAN2_ITS ---
Anesthesia Postop Eval I Sum Postop Eval Completion status Anesthesia document: Postop Eval 1 completed: Yes Anesthesia Postop Eval I Summary Anesthesia Postop Eval I Summary: Anesthesia Postop Eval I: Assessment Summary Airway patent No 08/20/24 12:46 EMERGENCY MEDICAL SERVICES [email or web address] Spontaneous unlabored No 08/20/24 12:46 EMERGENCY MEDICAL SERVICES COORDINATOR.[email or web address] respirations Mental status Awake,Calm 08/20/24 12:46 EMERGENCY MEDICAL SERVICES COORDINATOR.[email or web address] nausea No 08/20/24 12:46 EMERGENCY MEDICAL SERVICES COORDINATOR.[email or web address] Vomiting No 08/20/24 12:46 EMERGENCY MEDICAL SERVICES COORDINATOR.[email or web address] Anesthesia Postop Eval I: Fluid Summary Crystalloid volume administer 1,000 08/20/24 12:46 EMERGENCY MEDICAL SERVICES COORDINATOR.[email or web address] (ml) Colloids volume administered ( ml) Blood Product volume administered (ml) Total IV fluid infused 1,000 08/20/24 12:46 EMERGENCY MEDICAL SERVICES COORDINATOR.[email or web address] Anesthesia Postop Eval I: Summary Notes Anesthesia Complication No 08/20/24 12:46 EMERGENCY MEDICAL SERVICES COORDINATOR.[email or web address] Anesthesia Complication Comment: Post-operative progress note Anesthesia: Postop Eval II Evaluation Mental status: Awake and Calm Pain Level: 1 nausea: No Vomiting: No
--- NOTE | 2024-08-20 19:11 | PCM.POSTANE2 ---
Anesthesia Postop Eval I Sum Postop Eval Completion status Anesthesia document: Postop Eval 1 completed: Yes Anesthesia Postop Eval I Summary Anesthesia Postop Eval I Summary: Anesthesia Postop Eval I: Assessment Summary Airway patent No 08/20/24 12:46 [email or web address] Spontaneous unlabored No 08/20/24 12:46 PROPOSAL [email or web address] respirations Mental status Awake,Calm 08/20/24 12:46 PROPOSAL [email or web address] nausea No 08/20/24 12:46 [email or web address] [email or web address] Vomiting No 08/20/24 12:46 PROPOSAL [email or web address] Anesthesia Postop Eval I: Fluid Summary Crystalloid volume administer 1,000 08/20/24 12:46 PROPOSAL [email or web address] (ml) Colloids volume administered ( ml) Blood Product volume administered (ml) Total IV fluid infused 1,000 08/20/24 12:46 PROPOSAL [email or web address] Anesthesia Postop Eval I: Summary Notes Anesthesia Complication No 08/20/24 12:46 PROPOSAL [email or web address] Anesthesia Complication Comment: Post-operative progress note Anesthesia: Postop Eval II Evaluation Mental status: Awake and Calm Pain Level: 1 nausea: No Vomiting: No
[2024-08-21] VITALS (7 sets, daily range): BP systolic 140–188; BP diastolic 65–86; PULSE 60–80; RESP 12–16; TEMP 36.6–37.3; O2SAT 94–97
--- NOTE | 2024-08-21 08:26 | WOUNDNOTE ---
Had been in this am to see patient with Dr Curtis. SHAREE drain with minimal drainage. educated on stripping and emptying the drain. aware to record drainage and bring form to follow up appt next week. cups given to to empty drain. pt and appreciative and deny further questions or concerns at this time. no erythema noted to the incision. no drainage noted.
[2024-08-21] MEDS: Heparin Injection (Vial) 5,000 UNIT/ML VIAL 5000 UNIT SC ×2 (08:37→21:17)
--- NOTE | 2024-08-21 11:38 | PCM.CONS.GEN ---
Assessment & Plan Assessment/Plan (1) Mass of left side of neck: (2) Urine retention: (3) BPH (benign prostatic hyperplasia): PLAN: Plan This 74-year-old gentleman seen after urine retention twice during this hospital stay. 1. Acute on chronic urine retention probably due to BPH: Hill catheter was inserted. There was some mild bloody discharge/traumatic material which has cleared. Continue Hill catheter. Patient on Flomax 0.4 mg and Proscar 5 mg daily. Flomax increased to 0.8 mg daily. Discussed with the urologist Dr. Swan who has seen the patient. Does not want consult to be ordered to avoid unnecessary billing charge. He will be discharged with the Hill catheter and follow-up with him for his spontaneous voiding trial. 2. Labile/uncontrolled essential hypertension: Blood pressure has been uncontrolled, systolic 190s to 180s. Monitor BP. Most recent 141/74. Titrate antihypertensive medications. Hydralazine 10 mg IV as needed added. Lisinopril dose increased to 40 mg daily. 3. Left shoulder mass excision: SHAREE drain collection is less. Management as per plastic surgeon. 4. DVT prophylaxis: Moderate to high risk: DVT prophylaxis per plastic surgeon. HPI Consult Data Date of Consult: 08/21/24 HPI Narrative HPI Narrative: MICHELLE BATES, is a 74 M was consulted by plastic surgeon for evaluation of urine retention. Last night patient had urine retention and a straight cath was done with 700 mL urine was emptied. In the morning he again could not urinate and bladder scan showed about 700 mL therefore Hill catheter was inserted. Prior to this instance, he had 2 other events where he went into urinary retention. First was in 2013 when he had the Hill catheter when he had a stroke and then sent to the residential where he you had Hill catheter for about 47 days. Subsequently urinated without much problem. About 2 years ago second event happened with indentation and was evaluated in the ED was sent home with Hill catheter which was removed after 10 days by PCP. Patient on maximum medical therapy of Flomax and Proscar. This time he had mild hematuria during Hill catheter/traumatic hematuria Patient was admitted for left shoulder mass excision by plastic surgeon Dr. Wyatt. Complain of mild pain. He has a drain. [facility] Medical History Wears dentures Wears glasses Depression Anxiety Autism Injury of head and neck Hypertension Stroke Aneurysm Home Medications ?Medication ?Instructions ?Recorded ?Last Taken ?Type aspirin 81 mg tablet 81 mg PO DAILY 05/08/22 08/13/24 History finasteride 5 mg tablet 5 mg PO DAILY 08/07/24 Unknown History tamsulosin 0.4 mg capsule 0.4 mg PO DAILY 08/07/24 Unknown History lisinopril 30 mg tablet 30 mg PO DAILY 08/20/24 Unknown History oxycodone 5 mg tablet 5 mg PO BID PRN pain 5 days #10 08/21/24 Unknown Rx tabs Allergy/AdvReac Type Severity Reaction Status Date / Time No Known Allergies Allergy Verified 08/07/24 11:12 Surgical History History of brain shunt Social History Smoking Status: Never smoker ROS ROS Narrative Constitutional: Reports fatigue and weakness. No fever. HEENT: Reports systems reviewed and no addt'l complaints, except as documented Respiratory/Chest: No acute shortness of breath or respiratory distress or wheezing. CVS: No chest pain pressure or tightness Gastrointestinal: Denies coffee ground emesis, hematemesis or vomiting Genitourinary: Denies burning urination. Rest as described in HPI. Hill catheter Musculoskeletal: Denies acute joint pain or limited range of motion. No acute injury Neurologic: Denies seizure-like symptoms. skin: Left shoulder mass excision. Endocrinology: Reports systems reviewed and no addt'l complaints, except as documented Hematologic/Lymphatic: Reports systems reviewed and no addt'l complaints, except as documented Rest 14 ROS are negative except as mentioned in HPI Physical Exam Narrative General: Alert, Oriented x3, Cooperative HEENT: Atraumatic, PERRLA, EOMI, Normocephalic. Oral: No Gingival or Mucosal Lesions/ Ulcerations Neck: Supple, No JVD, Negative Carotid Bruits Chest wall/Lungs: Air entry diminished in bilateral lung bases. No crepitation/rhonchi Cardiovascular: Regular rate and rhythm, Normal S1,S2, No M/G/R Abdomen: Bowel Sounds Present, Soft, Non Tender, Non-Distended : Urethral Hill catheter. Urine initially was concentrated/traumatic hematuria. It has cleared. No renal angle tenderness. No suprapubic tenderness. Extremities: No edema, Capillary Refill Less than 3 Seconds Skin: Left shoulder surgical dressing is dry. Small SHAREE drain with serosanguineous collection. Musculoskeletal: No Tenderness to Palpation of Joints or Extremities Neurological: Cranial nerves II-XII grossly intact, DTR 2+/4. No acute focal neurological deficit. Psych/Mental Status: Normal Affect, Appropriate. Charges/Coding Visit Charges Office Visits / Consults: 88792 OV L5 Est 40min
[2024-08-21 13:43] LABS: Mucous, Urine 0 SEEN /hpf (<or=2+)
[2024-08-21 13:48] LABS: Color, Urine Brown (Yellow); Glucose, Dipstick Normal (Normal); Ketone-Dipstick Negative (Negative); Leukocyte Esterase-Dipstick 500 /ul (Negative); Nitrite-Dipstick Positive (Negative); Occult Blood-Urine 250 /ul (Negative); Protein-Dipstick 100 mg/dl (Negative); Specific Gravity, Urine 1.020 (1.002-1.030); Urine Bilirubin Dipstick Negative (Negative)
--- NOTE | 2024-08-21 14:04 | CON.PCM.UR_ITS ---
HPI Consult Data Date of Consult: 08/21/24 HPI Narrative Reason for Consultation: Urinary retention HPI Narrative: MICHELLE BATES, is a 74 M who presents to the hospital with a neck mass has been seen by general surgery while in the hospital he been having difficulty with urination he had to have straight cath now he got a Hill catheter and he is on maximal medical therapy with Flomax and Proscar this has happened before when he was hospitalized before he does have a history of enlarged prostate he did see a urologist in the past who since has retired. At this point he has a catheter and continue with Flomax and Proscar he will to go home with a Hill catheter follow-up in my office for cystoscopy ultrasound of his prostate will reassess to see if he can urinate at that point or he may have from surgical intervention for BPH with obstruction and urinary retention but for now he can go home with a catheter and follow-up in my office call me with questions [facility] Medical History Wears dentures Wears glasses Depression Anxiety Autism Injury of head and neck Hypertension Stroke Aneurysm Home Medications ?Medication ?Instructions ?Recorded ?Last Taken ?Type aspirin 81 mg tablet 81 mg PO DAILY 05/08/2209/30 History finasteride 5 mg tablet 5 mg PO DAILY 08/07/24 Unkno wn History tamsulosin 0.4 mg capsule 0.4 mg PO DAILY 08/07/24 Unk nown History lisinopril 30 mg tablet 30 mg PO DAILY 08/20/24 Unkn own History oxycodone 5 mg tablet 5 mg PO BID PRN pain 5 days #10 08/21/24 Unknown Rx tabs Allergy/AdvReac Type Severity Reaction Status Date / Time No Known Allergies Allergy Verified 08/07/24 11:12 Surgical History History of brain shunt Social History Smoking Status: Never smoker Lab / Micro Data Labs: Laboratory Results - last 24 hr 08/21/24 13:25: Urine Color Brown, Urine Clarity Turbid, Urine pH 6.0, Ur Specific [place] 1.020, Urine Protein 100 H, Urine Glucose (UA) Normal, Urine Ketones Negative, Urine Occult Blood 250 H, Urine Nitrite Positive H, Urine Bilirubin Negative, Urine Urobilinogen Normal, Ur Leukocyte Esterase 500 H
--- NOTE | 2024-08-21 14:05 | DCINST_ITS ---
Discharge Instructions DC O2, CPAP, BIPAP needs Home O2 Discharge instructions: No Dressing / Incision Discharge Activity: Return to Normal Activity and May Not Drive (while taking narcotic pain medications.) Dressing / Incision Call your doctor if you observe: Fever of 101 or Higher Follow Up Care Please Follow Up With: Maikol Deal MD When: Call [phone] for an appointment Test Results: Test results from this visit will be discussed in further detail at your follow- up appointment, if applicable. Discharge Plan Admission Admit Date/Time: 08/20/24 13:02 Attending Provider: Christophe Zhang Primary Care Provider: SUKUMAR BENJAMIN Consulting Providers: Inocencio Gómez Instructions Additional Instructions / Restrictions: Operations Performed: left neck mass excision Instructions for My Care at Home or Healthcare Facility The following instructions will help you know what to expect in the days following surgery. These are general instructions. Your surgeon and therapist may give you special instructions, which vary to some degree based on your specific procedure -- follow those as directed. Do not, however, hesitate to call if you have any questions or concerns. Splint Care/Dressing Care/Wound Care * Dressings - You may have a dressing over the operative site. * If the dressing feels too tight after you get home, it is ok to gently pull on the dressing to stretch it out/loosen it. * Avoid smoking or other tobacco products. Smoking tobacco impairs wound healing and increases the risks of post-operative complications. * Tape over your incisions (if present) will fall off on its own Activities * For the first 4 weeks after surgery, try to balance your activity, allowing time for rest. * Avoid lifting, pushing, or pulling anything over 5 pounds. * Do not drive or operate heavy machinery within 24 hrs of surgery or while taking narcotic pain medication.? Pain Control/Medications * If you received an anesthetic block, your hand or arm may be numb for several hours. You will be discharged to home with medications, including an oral pain medication (analgesic). Rest and elevation are still one of the most important factors for pain control. Take your pain medication as needed, but do not wait for the pain to become out of control. * For severe pain, you may take prescription pain medication as directed, but please note that this may also contain Tylenol (e.g. Percocet). Do not take more than 4000mg of Tylenol (acetaminophen) from all sources daily.? * Pain medication may cause some lethargy, nausea, and or constipation. You should not drive/operate dangerous machinery while taking these medications. If these or other symptoms become significantly problematic, please your surgeon's office. * If prescribed oral antibiotics (Keflex, Clindamycin, or others), please take prescription for full duration as instructed. You should not have any pills remaining once completed (refills are written for your convenience should the course need to be extended, but generally they are not required). Diet (what I can eat): Resume normal diet Follow up * You will be seen (most likely) 1 to 2 weeks after surgery depending on the procedure. Follow-up appointment reminders:? (A list of any scheduled appointments is at the end of this document)? At your earliest convenience, please call [phone] to confirm/schedule a follow-up appointment with me in clinic. When to call your surgeon: * If any signs of surgical site infection develop: redness, pus, pain, increased swelling or foul odor at the incision site, fever, cold and clammy skin, or confusion. * Consistent temperature above 101?F (38.3?C). * The affected area gets swollen or much more painful. * You have excessive bleeding from surgical site (soaking through). If you experience difficulty breathing and/or shortness of breath, seek immediate medical attention. If experiencing any of the above complications or if you have any questions, call [phone] Drain Care:? A drain has been placed during surgery in order to prevent the accumulation of fluids beneath your skin. The drain decreases the chance of infection and helps in the healing process. The nursing staff will instruct you and your family on the care and recording of drainage. ? * You may shower with them. Let soap and water run down over drains, rinse and pat dry with clean towel. Reinforce with gauze or ABD pad around drain site if leaking occurs around the drain; this is not unusual.?Hold drains in your hand or attach to lanyard (or string) around your neck with safety pin so they do not hang from your body (the tension on your skin may cause them to be pulled out) while your are showering. * The drains are attached to you with suture. If your drain(s) falls out accidentally, place a clean piece of gauze over the drain site with tape and discard your drain.? * If your drain bulb loses suction or your drain has migrated out from the drain site, do not attempt to push the drain back into your skin. Cover the area with dry gauze. You may be asked by your surgeon to place a piece of semi occlusive dressing (tegaderm) over the drain site to keep the site clean and drain in place until you are seen in the office.? * When you are wearing clothes, attach drains to your clothes in a place where there is minimal/no tension on the insertion site to your skin.? * You should empty the drainage and record the output at least 2 times per day, or when the drainage fills the bulb almost care home. Please keep daily amounts of drainage separate for each drain for a 24-hour period (for example drain #1 put out 40 mL for 24 hours).? * Strip your drains daily as shown to you by your nurse prior to discharge to avoid them from becoming clogged:? * Wash your hands. * Strip tubing three times a day (more often if there are a lot of blood clots). * Grasp tubing close to body with one hand and pull toward body. With other hand grasp tubing below the first hand. Using an alcohol swab, pinch tubing tightly, sliding fingers down tubing, away from body. * Repeat 2 or 3 times. Be sure drainage is flowing into bulbs. * Measure the drainage in the bulb by either using the calibrations on the bulb or by emptying the Bulb into small measuring container 3 times a day (more often if there is a lot of drainage or they feel heavy) Open small lid on top of bulb. Pour drainage into container. Squeeze bulb and hold while replacing small lid. Bulb should be collapsed to be effective. Pin bulb to clothing so the weight will not pull on the insertion site. * Measure drainage and record amount each time you empty the bulbs. Hold container at eye level to read the numbers on the side of the container. Read the numbers in the ml column. Record amount of drainage on chart. * Record your drain output daily and bring this record with you to your next follow up appointment. Drains will typically be removed in the clinic when output is less than 30 mL/24 hours per drain over 2 consecutive days. For radha gregorio removal appointment, please call your doctors office directly to schedule.? Location: Drain #1 Drain #2 Drain #3 Drain #4 AM Noon PM AM Noon PM AM Noon PM AM Noon PM Date: Total (daily) AM Noon PM AM Noon PM AM Noon PM AM Noon PM Date: Total (daily) 0 AM Noon PM AM Noon PM AM Noon PM AM Noon PM Date: Total (daily) AM Noon PM AM Noon PM AM Noon PM AM Noon PM Date: Total (daily) AM Noon PM AM Noon PM AM Noon PM AM Noon PM Date: Total (daily) AM Noon PM AM Noon PM AM Noon PM AM Noon PM Date: Total (daily) AM Noon PM AM Noon PM AM Noon PM AM Noon PM Date: Total (daily) AM Noon PM AM Noon PM AM Noon PM AM Noon PM Date: Total (daily) AM Noon PM AM Noon PM AM Noon PM AM Noon PM Date: Total (daily) AM Noon PM AM Noon PM AM Noon PM AM Noon PM Date: Total (daily) AM Noon PM AM Noon PM AM Noon PM AM Noon PM Date: Total (daily) AM Noon PM AM Noon PM AM Noon PM AM Noon PM Date: Total (daily) AM Noon PM AM Noon PM AM Noon PM AM Noon PM Date: Total (daily) AM Noon PM AM Noon PM AM Noon PM AM Noon PM Date: Total (daily) AM Noon PM AM Noon PM AM Noon PM AM Noon PM Date: Total (daily) Discharge Orders/Prescriptions Prescriptions: New oxycodone 5 mg tablet 5 mg PO BID PRN (Reason: pain) 5 Days Qty: 10 0RF No Action aspirin 81 mg Tablet 81 mg PO DAILY Patient Comments: STOP [address] ZHANG tamsulosin 0.4 mg capsule 0.4 mg PO DAILY finasteride 5 mg tablet 5 mg PO DAILY lisinopril 30 mg tablet 30 mg PO DAILY Referrals / Follow Up: SUKUMAR BENJAMIN, ANALYSIS CONSULTANT-C [Primary Care Provider] - Disposition Disposition (needs filled in before D/C Order can be placed): Home, Self Care
[2024-08-21 14:22] LABS: Creatinine, Urine (random) 102.00 mg/dL (39.00-259.00); Protein, Urine (Random) 53.2 mg/dL (0.0-12.0); Protein:Creat Ratio 522 mg/g CRE (0-200)
[2024-08-21 14:27] LABS: Red Blood Cells-Urine 50-100 SEEN /hpf (0-5)
[2024-08-21 14:28] LABS: Squamous Epithelial Cells - UA 0-5 SEEN /hpf (0-5)
[2024-08-21 14:31] LABS: Transitional Epithelial - Ur 0-5 SEEN /hpf (0-5)
--- NOTE | 2024-08-21 15:13 | CASEMGMT ---
PREMA LANCASTER noted pt is being dc'd with luciano and drain care. RN CM into pt room, pt with family members present and pt agreeable to assessment with family in room. Pt states he feels comfortable with the drain care as this was already instructed to him. Pt states he has had a luciano in the past and denies any concern with this. Pt has transportation home when the time comes. Pt denies any homegoing needs.
[2024-08-21] MEDS: 0.9% Saline Lock 10 ML Syringe IV (16:10)
[2024-08-21] MEDS: 0.9% Normal Saline (250mL Bag) 250 ML 15 ML IV (16:12)
--- NOTE | 2024-08-21 17:44 | PN.SURG_ITS ---
Subjective Subjective Pain controlled. Trouble voiding and with HTN. Medicine consulted Objective Data Objective Data Vital Signs: Vital Signs Temp Pulse Resp BP Pulse Ox O2 Del Method O2 Flow Rate 98 F 80 16 157/73 H 94 Room Air 2 08/21/24 15:40 08/21/24 16:24 08/21/24 15:40 08/21/24 15:40 08/21/24 15:40 08/21/24 16:24 08/20/24 14:00 Oxygen Flow Rate (L/min) 2 Oxygen Delivery Method Room Air Weight: 187 lb 6.287 oz Body Mass Index (BMI) 26.9 Intake & Output: Intake and Output for Last 24 Hours 08/19/24 08/20/24 08/21/24 23:59 23:59 23:59 Intake Total 864.75 / 864.75 Output Total 1890 / 1890 Balance - -1025.25 / -1025.25 Lab / Micro Data Labs: Laboratory Results - last 24 hr 08/21/24 13:25: Urine Color Brown, Urine Clarity Turbid, Urine pH 6.0, Ur Specific [place] 1.020, Urine Protein 100 H, Urine Glucose (UA) Normal, Urine Ketones Negative, Urine Occult Blood 250 H, Urine Nitrite Positive H, Urine Bilirubin Negative, Urine Urobilinogen Normal, Ur Leukocyte Esterase 500 H, Urine RBC 50-100 SEEN, Urine WBC >100 SEEN, Ur Squamous Epith Cells 0-5 SEEN, Ur Transition Epith Cell 0-5 SEEN, Urine Bacteria 4+, Urine Mucus 0 SEEN, U Random Total Protein 53.2 H, Ur Random Sodium 29, Urine Creatinine 102.00, Protein/Creatinin Ratio 522 H, Urine Potassium 29.5, Urine Chloride 39 Physical Exam Narrative Left neck incision c/d/i Drain SS No hematoma Const alert and oriented x3 Resp normal respiratory effort Cardio Rate: regular rate Assessment & Plan Assessment/Plan (1) Mass of left side of neck: PLAN: S/p excision Medicine consulted Hill in place with Urology assisting with patient care as well. Plan to increase BP meds per medicine Patiet will go home with Hill and f/u OP with urology Continue DVT chemoprophylaxis and SCDs. Anticipate DC in the AM Charges/Coding Procedures Integumentary [id number]: [id number] Global Visit
[2024-08-22 04:00] VITALS: BP 107/58; PULSE 60; RESP 15; TEMP 36.8; O2SAT 95
--- NOTE | 2024-08-22 06:50 | DS.PCM_ITS ---
Providers Date of Admission: 08/20/24 Primary Care Physician: KOLE DUENAS Consultations 08/21/24 11:03 Consult: Hospitalist Routine Consulting Provider: Inocencio Gómez Reason for Consult: urinary retention EMERGENT Consult: No MD Notified: Yes Date Notified: 08/21/24 Time Notified: 11:07 Method of Notification: Verbal Reason For Visit: left neck mass excision Diagnosis Discharge Diagnosis (1) Mass of left side of neck: Status: Acute Code(s): R22.1 - Localized swelling, mass and lump, neck Plan: S/p excision Medicine consulted Hill in place with Urology assisting with patient care as well. Plan to increase BP meds per medicine Patiet will go home with Hill and f/u OP with urology Continue DVT chemoprophylaxis and SCDs. Anticipate DC in the AM Medications at Discharge Home Medications aspirin 81 mg tablet 81 mg PO DAILY 05/08/22 finasteride 5 mg tablet 5 mg PO DAILY 08/07/24 oxycodone 5 mg tablet 5 mg PO BID PRN pain 5 days #10 tabs 08/21/24 cefdinir 300 mg capsule 300 mg PO BID 4 days #8 caps 08/22/24 lisinopril 40 mg tablet 40 mg PO DAILY 1 month #30 tabs 08/22/24 tamsulosin 0.4 mg capsule 0.8 mg (2 x 0.4 mg) PO DAILY 30 days #0 caps 08/22/24 Hospital Course Summary of Care Provided Hospital Course: Patient admitted on 20 August 2024 for left neck mass removal. He had an uneventful surgical postoperative course and learn drain care while admitted; however, he suffered from urinary retention requiring Hill placement and medicine/urology consultation, who recommended outpatient follow-up (patient discharged home with Hill per their recommendation). Patient also was hypertensive during this admission, which was managed with medicine consultation and increase of blood pressure medications. Patient will follow-up outpatient for this problem as well. Plan to follow-up with me in 1 week on 29 August 2024 for postoperative assessment and likely drain removal, as well as to discuss pathology. Patient happy with the plan. Physical Exam Narrative Left neck incision c/d/i Drain SS No hematoma Const alert and oriented x3 Resp normal respiratory effort Cardio Rate: regular rate Weight / BMI Weight Weight: 187 lb 6.287 oz Body Mass Index (BMI) 26.9 ABG / Lab / Microbiology Data Laboratory: Laboratory Results - last 24 hr 08/21/24 13:25: Urine Color Brown, Urine Clarity Turbid, Urine pH 6.0, Ur Specific [place] 1.020, Urine Protein 100 H, Urine Glucose (UA) Normal, Urine Ketones Negative, Urine Occult Blood 250 H, Urine Nitrite Positive H, Urine Bilirubin Negative, Urine Urobilinogen Normal, Ur Leukocyte Esterase 500 H, Urine RBC 50-100 SEEN, Urine WBC >100 SEEN, Ur Squamous Epith Cells 0-5 SEEN, Ur Transition Epith Cell 0-5 SEEN, Urine Bacteria 4+, Urine Mucus 0 SEEN, U Random Total Protein 53.2 H, Ur Random Sodium 29, Urine Creatinine 102.00, Protein/Creatinin Ratio 522 H, Urine Potassium 29.5, Urine Chloride 39 D/C Instructions Call your doctor if you observe: Fever of 101 or Higher DC O2, CPAP, BIPAP Needs Home O2 Discharge instructions: No Please Follow Up With: Maikol Deal MD When: Call [phone] for an appointment Meaningful Use Info Meaningful Use Meaningful Use Diagnoses (Choose all that apply): None applicable Discharge Plan Admission Admit Date/Time: 08/20/24 13:02 Attending Provider: Christophe Zhang Primary Care Provider: SUKUMAR BENJAMIN Consulting Providers: Inocencio Gómez Instructions Additional Instructions / Restrictions: Operations Performed: left neck mass excision Instructions for My Care at Home or Healthcare Facility The following instructions will help you know what to expect in the days following surgery. These are general instructions. Your surgeon and therapist may give you special instructions, which vary to some degree based on your specific procedure -- follow those as directed. Do not, however, hesitate to call if you have any questions or concerns. Splint Care/Dressing Care/Wound Care * Dressings - You may have a dressing over the operative site. * If the dressing feels too tight after you get home, it is ok to gently pull on the dressing to stretch it out/loosen it. * Avoid smoking or other tobacco products. Smoking tobacco impairs wound healing and increases the risks of post-operative complications. * Tape over your incisions (if present) will fall off on its own Activities * For the first 4 weeks after surgery, try to balance your activity, allowing time for rest. * Avoid lifting, pushing, or pulling anything over 5 pounds. * Do not drive or operate heavy machinery within 24 hrs of surgery or while taking narcotic pain medication.? Pain Control/Medications * If you received an anesthetic block, your hand or arm may be numb for several hours. You will be discharged to home with medications, including an oral pain medication (analgesic). Rest and elevation are still one of the most important factors for pain control. Take your pain medication as needed, but do not wait for the pain to become out of control. * For severe pain, you may take prescription pain medication as directed, but please note that this may also contain Tylenol (e.g. Percocet). Do not take more than 4000mg of Tylenol (acetaminophen) from all sources daily.? * Pain medication may cause some lethargy, nausea, and or constipation. You sh ould not drive/operate dangerous machinery while taking these medications. If these or other symptoms become significantly problematic, please your surgeon's office. * If prescribed oral antibiotics (Keflex, Clindamycin, or others), please take prescription for full duration as instructed. You should not have any pills remaining once completed (refills are written for your convenience should the course need to be extended, but generally they are not required). Diet (what I can eat): Resume normal diet Follow up * You will be seen (most likely) 1 to 2 weeks after surgery depending on the pro cedure. Follow-up appointment reminders:? (A list of any scheduled appointments is at the end of this document)? At your earliest convenience, please call [phone] to confirm/schedule a follow-up appointment with me in clinic. When to call your surgeon: * If any signs of surgical site infection develop: redness, pus, pain, increased swelling or foul odor at the incision site, fever, cold and clammy skin, or confusion. * Consistent temperature above 101?F (38.3?C). * The affected area gets swollen or much more painful. * You have excessive bleeding from surgical site (soaking through). If you experience difficulty breathing and/or shortness of breath, seek immediate medical attention. If experiencing any of the above complications or if you have any questions, call [phone] Drain Care:? A drain has been placed during surgery in order to prevent the accumulation of fluids beneath your skin. The drain decreases the chance of infection and helps in the healing process. The nursing staff will instruct you and your family on the care and recording of drainage. ? * You may shower with them. Let soap and water run down over drains, rinse and pat dry with clean towel. Reinforce with gauze or ABD pad around drain site if leaking occurs around the drain; this is not unusual.?Hold drains in your hand or attach to lanyard (or string) around your neck with safety pin so they do not hang from your body (the tension on your skin may cause them to be pulled out) while your are showering. * The drains are attached to you with suture. If your drain(s) falls out accidentally, place a clean piece of gauze over the drain site with tape and discard your drain.? * If your drain bulb loses suction or your drain has migrated out from the drain site, do not attempt to push the drain back into your skin. Cover the area with dry gauze. You may be asked by your surgeon to place a piece of semi occlusive dressing (tegaderm) over the drain site to keep the site clean and drain in place until you are seen in the office.? * When you are wearing clothes, attach drains to your clothes in a place where there is minimal/no tension on the insertion site to your skin.? * You should empty the drainage and record the output at least 2 times per day, or when the drainage fills the bulb almost long-term. Please keep daily amounts of drainage separate for each drain for a 24-hour period (for example drain #1 put out 40 mL for 24 hours).? * Strip your drains daily as shown to you by your nurse prior to discharge to avoid them from becoming clogged:? * Wash your hands. * Strip tubing three times a day (more often if there are a lot of blood clots). * Grasp tubing close to body with one hand and pull toward body. With other hand grasp tubing below the first hand. Using an alcohol swab, pinch tubing tightly, sliding fingers down tubing, away from body. * Repeat 2 or 3 times. Be sure drainage is flowing into bulbs. * Measure the drainage in the bulb by either using the calibrations on the bulb or by emptying the Bulb into small measuring container 3 times a day (more often if there is a lot of drainage or they feel heavy) Open small lid on top of bulb. Pour drainage into container. Squeeze bulb and hold while replacing small lid. Bulb should be collapsed to be effective. Pin bulb to clothing so the weight will not pull on the insertion site. * Measure drainage and record amount each time you empty the bulbs. Hold container at eye level to read the numbers on the side of the container. Read the numbers in the ml column. Record amount of drainage on chart. * Record your drain output daily and bring this record with you to your next follow up appointment. Drains will typically be removed in the clinic when output is less than 30 mL/24 hours per drain over 2 consecutive days. For drain removal appointment, please call your doctors office directly to schedule.? Location: Drain #1 Drain #2 Drain #3 Drain #4 AM Noon PM AM Noon PM AM Noon PM AM Noon PM Date: Total (daily) AM Noon PM AM Noon PM AM Noon PM AM Noon PM Date: Total (daily) AM Noon PM AM Noon PM AM Noon PM AM Noon PM Date: Total (daily) AM Noon PM AM Noon PM AM Noon PM AM Noon PM Date: Total (daily) AM Noon PM AM Noon PM AM Noon PM AM Noon PM Date: Total (daily) AM Noon PM AM Noon PM AM Noon PM AM Noon PM Date: Total (daily) AM Noon PM AM Noon PM AM Noon PM AM Noon PM Date: Total (daily) AM Noon PM AM Noon PM AM Noon PM AM Noon PM Date: Total (daily) 0 AM Noon PM AM Noon PM AM Noon PM AM Noon PM Date: Total (daily) AM Noon PM AM Noon PM AM Noon PM AM Noon PM Date: Total (daily) AM Noon PM AM Noon PM AM Noon PM AM Noon PM Date: Total (daily) AM Noon PM AM Noon PM AM Noon PM AM Noon PM Date: Total (daily) AM Noon PM AM Noon PM AM Noon PM AM Noon PM Date: Total (daily) AM Noon PM AM Noon PM AM Noon PM AM Noon PM Date: Total (daily) AM Noon PM AM Noon PM AM Noon PM AM Noon PM Date: Total (daily) Discharge Orders/Prescriptions Prescriptions: New oxycodone 5 mg tablet 5 mg PO BID PRN (Reason: pain) 5 Days Qty: 10 0RF cefdinir 300 mg capsule 300 mg PO BID 4 Days Qty: 8 0RF lisinopril 40 mg tablet 40 mg PO DAILY 30 Days Qty: 30 1RF Continued aspirin 81 mg Tablet 81 mg PO DAILY Patient Comments: STOP [address] ZHANG finasteride 5 mg tablet 5 mg PO DAILY Changed tamsulosin 0.4 mg capsule 0.8 mg PO DAILY 30 Days Qty: 0 0RF Discontinued lisinopril 30 mg tablet 30 mg PO DAILY Referrals / Follow Up: Maikol Deal MD [Med Staff - Active Staff] - Within 1 Week (Discharged with Hill catheter) Christophe Zhang MD [Med Staff - Active Staff] - SUKUMAR BENJAMIN NP-C [Primary Care Provider] - Disposition Disposition (needs filled in before D/C Order can be placed): Home, Self Care
[2024-08-22 08:32] VITALS: BP 150/75; PULSE 64; RESP 16; TEMP 36.6; O2SAT 93
[2024-08-22] MEDS: Heparin Injection (Vial) 5,000 UNIT/ML VIAL 5000 UNIT SC (09:00)
[2024-08-22] MEDS: 0.9% Saline Lock 10 ML Syringe IV (09:00)
--- NOTE | 2024-08-22 10:00 | CASEMGMT ---
PREMA LANCASTER NOTE: PREMA LANCASTER notified by Maricruz LLOYD, that pt reports his friend who was going to take him home is now not available and he is requesting to use [facility] van for transport home. Call placed to Gene @ the call center who states they do not have any openings today. PREMA LANCASTER to room. Pt resting in bed, family @ bedside. They were notified [facility] van is not available today. Family states they will be able to work something out for a ride. Pt denies having any further discharge needs or concerns, stating he is ready to go home. Nancy BSN PREMA CM
--- NOTE | 2024-08-22 10:34 | PN.HOSP_ITS ---
Objective Data Objective Data Vital Signs: Vital Signs Temp Pulse Resp BP Pulse Ox O2 Del Method O2 Flow Rate 97.9 F 64 16 150/75 H 93 Room Air 2 08/22/24 08:32 08/22/24 08:32 08/22/24 08:32 08/22/24 08:32 08/22/24 08:32 08/22/24 08:32 08/20/24 14:00 Oxygen Flow Rate (L/min) 2 Oxygen Delivery Method Room Air Weight: 187 lb 6.287 oz Body Mass Index (BMI) 26.9 Intake & Output: Intake and Output for Last 24 Hours 08/20/24 08/21/24 08/22/24 23:59 23:59 23:59 Intake Total 964.75 / 964.75 300 / 300 Output Total 3300 / 3510 215 / 215 Balance - -2335.25 / -2545.25 85 / 85 Lab / Micro Data Labs: Laboratory Results - last 24 hr 08/21/24 13:25: Urine Color Brown, Urine Clarity Turbid, Urine pH 6.0, Ur Specific [place] 1.020, Urine Protein 100 H, Urine Glucose (UA) Normal, Urine Ketones Negative, Urine Occult Blood 250 H, Urine Nitrite Positive H, Urine Bilirubin Negative, Urine Urobilinogen Normal, Ur Leukocyte Esterase 500 H, Urine RBC 50-100 SEEN, Urine WBC >100 SEEN, Ur Squamous Epith Cells 0-5 SEEN, Ur Transition Epith Cell 0-5 SEEN, Urine Bacteria 4+, Urine Mucus 0 SEEN, U Random Total Protein 53.2 H, Ur Random Sodium 29, Urine Creatinine 102.00, Protein/Creatinin Ratio 522 H, Urine Potassium 29.5, Urine Chloride 39 Physical Exam Narrative Seen and examined. No acute issues. No fever. Physical exam General: Alert, Oriented x3, Cooperative HEENT: Atraumatic, PERRLA, EOMI, Normocephalic. Oral: No Gingival or Mucosal Lesions/ Ulcerations Neck: Supple, No JVD, Negative Carotid Bruits Chest wall/Lungs: Air entry diminished in bilateral lung bases. No crepitation/rhonchi Cardiovascular: Regular rate and rhythm, Normal S1,S2, No M/G/R Abdomen: Bowel Sounds Present, Soft, Non Tender, Non-Distended : Urethral Hill catheter. Urine is clear. No renal angle tenderness. No suprapubic tenderness. Extremities: No edema, Capillary Refill Less than 3 Seconds Skin: Left shoulder surgical dressing is dry. Small SHAREE drain with serosanguineous collection. Musculoskeletal: No Tenderness to Palpation of Joints or Extremities Neurological: Cranial nerves II-XII grossly intact, DTR 2+/4. No acute focal neurological deficit. Psych/Mental Status: Normal Affect, Appropriate. Assessment & Plan Assessment/Plan (1) Mass of left side of neck: (2) Urine retention: (3) BPH (benign prostatic hyperplasia): PLAN: Plan This 74-year-old gentleman seen after urine retention twice during this hospital stay. 1. Acute on chronic urine retention probably due to BPH: Hill catheter was inserted. There was some mild bloody discharge/traumatic material which has cleared. Continue Hill catheter. Patient on Flomax 0.4 mg and Proscar 5 mg daily. Flomax increased to 0.8 mg daily. Discussed with the urologist Dr. Deal who has seen the patient. Does not want consult to be ordered to avoid unnecessary billing charge. He will be discharged with the Hill catheter and follow-up with him for his spontaneous voiding trial. 08/22: Discussed with urologist yesterday. Plan for discharge with Hill catheter. Follow-up in urology office in 1 week. Urine culture pending but UA was abnormal therefore empirically sent on 4 more days of cefdinir. Patient had 2 doses of IV ceftriaxone in the hospital. 2. Labile/uncontrolled essential hypertension: Blood pressure has been uncontrolled, systolic 190s to 180s. Monitor BP. Most recent 141/74. Titrate antihypertensive medications. Hydralazine 10 mg IV as needed added. Lisinopril dose increased to 40 mg daily. 08/22: Follow-up with the PCP 3. Left shoulder mass excision: SHAREE drain collection is less. Management as per plastic surgeon. 08/22 patient is being discharged with a SHAREE drain by plastic surgeon. Follow-up with him in 1 week 4. DVT prophylaxis: Moderate to high risk: DVT prophylaxis per plastic surgeon. Charges/Coding Visit Charges Inpatient E&M: 12415 Subs Hosp L2
[2024-08-22 11:38] VITALS: BP 126/65; PULSE 69; RESP 16; TEMP 36.6; O2SAT 94
== END 2024-08-22 12:28 | disposition home or self-care (01) ==
LOC: SDC 14:34 → MS3 14:34
PROVIDERS: Internal Medicine; Admitting Provider Surgery Plastic and Reconstructive Surgery; PCP Nurse Practitioner Family; Referring Provider Surgery Plastic and Reconstructive Surgery; Visit Provider Surgery Plastic and Reconstructive Surgery
PROC: (CPT 21554; principal; 2024-08-20 10:30)
DX: R22.1 Localized swelling, mass and lump, neck (principal); N40.1 Benign prostatic hyperplasia with lower urinary tract symptoms; I10 Essential (primary) hypertension; Z79.82 Long term (current) use of aspirin; R33.8 Other retention of urine; Z79.899 Other long term (current) drug therapy; F84.0 Autistic disorder
CPT/HCPCS: 21554; 13133; 13132; 00300; 51702; 81001; 82436; 82570; 84133; 84156; 84300; 87077; 87086; 87088; 87186; 88108; 88304; 88305; 88313; 96365; 96366; 96372; 96375; 99221; A4648; A4216; G0378; J2405